=== PATIENT | male | born 1955 | race African-American/Black ===

== ENCOUNTER 2017-03-22 06:51 | Emergency (ER) ==
[2017-03-22 07:09] VITALS: TEMP 98.4; BMI 22.8
[2017-03-22] MEDS ORDERED: CARDIZEM INJ ONE ×2 (07:19→08:27)
[2017-03-22] MEDS ORDERED: CARDIZEM INJ IVP STA ×2 (07:25→07:56)
--- NOTE | 2017-03-22 07:57 | DI ---
EXAM: Chest one view. CLINICAL INDICATION: Chest pain. COMPARISON: 05/15/2015. FINDINGS: A single AP radiograph of the thorax is provided. The pulmonary parenchyma is clear and there is no pleural abnormality. The cardiomediastinal silhou ette and visualized bony structures are unremarkable. IMPRESSION: Negative chest x-ray.
--- NOTE | 2017-03-22 08:00 | ED.PDOC ---
General ED Provider: Dr. NELIDA BURNS Chief Complaint: Chest Pain Stated Complaint: chest pain Time Seen by Physician: 07:00 Mode of Arrival: Walk-In Information Source: Patient Exam Limitations: No limitations Nursing and Triage Documentation Reviewed and Agree: Yes Cardiovascular Complaint Exam - Chest Pain Complaint/Exam Onset: Sudden Duration: 30 min Symptoms Are: Still present Timing: Constant Initial Severity: Mild Current Severity: Mild Location: Reports: Midsternal Pain Radiates: Reports: None Character: Reports: Dull Aggravating: Reports: None Alleviating: Reports: None Associated Signs and Symptoms: Denies: Diaphoresis, Nausea, Vomiting, Fever, Palpitations, Cough, Hemoptysis, Back pain, Abdominal pain, Dizziness, Short of air, Calf pain, Calf swelling Related History: Reports: Similar episode Related Surgical History: Reports: None History of Healthcare-Acquired Pneumonia: Reports: No AMI/ACS Risk Factors: Reports: Smoking (stopped 2 months ago history ofAFIB ) TAD Risk Factors: Reports: None Pulmonary Embolism Risk Factors: Reports: None Prior Care for this Complaint: Yes (afib) Recent Stress Test: No Recent Echo/LV Function: No JVD Present: No Subcutaneous Emphysema Present: No Diminshed Breath Sounds: No Reproducible Chest Wall Pain: No Bilateral Pulses Present: Yes Unequal Pulses Noted: No If Risk Factors for AMI/ACS Consider: EKG, Cardiac Enzymes Review of Systems - Review Of Systems Constitutional: Reports: No symptoms Eyes: Reports: No symptoms Ears, Nose, Mouth, Throat: Reports: No symptoms Respiratory: Reports: No symptoms Cardiac: Reports: Chest pain GI: Reports: No symptoms : Reports: No symptoms Musculoskeletal: Reports: No symptoms Skin: Reports: No symptoms Neurological: Reports: No symptoms Endocrine: Reports: No symptoms Hematologic/Lymphatic: Reports: No symptoms All Other Systems: Reviewed and Negative Past Medical History - Past Medical History Previously Healthy: Yes Endocrine: Reports: None Cardiovascular: Reports: None Respiratory: Reports: None Hematological: Reports: None Gastrointestinal: Reports: None Genitourinary: Reports: None Neuro/Psych: Reports: None Musculoskeletal: Reports: None Cancer: Reports: None - Surgical History General Surgical History: Reports: None - Family History Family History: Reports: None - Social History Smoking Status: Former smoker Hx Substance Use: No Alcohol Screening: Occasionally - Immunizations Tetanus Shot up to Date: Yes Physical Exam - Physical Exam Appearance: Ill-appearing Ill-appearing: Moderate Pain Distress: Moderate Eyes: LANCE, EOMI, Conjunctiva clear ENT: Ears normal, Nose normal, Oropharynx normal Respiratory: Airway patent, Breath sounds clear, Breath sounds equal, Respirations nonlabored Cardiovascular: RRR, Pulses normal, No rub, No murmur GI/: Soft, Nontender, No masses, Bowel sounds normal, No Organomegaly Musculoskeletal: Normal strength, ROM intact, No edema, No calf tenderness Skin: Warm, Dry, Normal color Neurological: Sensation intact, Motor intact, Reflexes intact, Cranial nerves intact, Alert, Oriented Psychiatric: Affect appropriate, Mood appropriate Interpretation - Radiology Interpretation Radiology Interpretation By: Radiologist Radiology Results: Negative Exam Interpreted: CXR - EKG Interpretation Ectopy: PVCs ST Segment: Other (atrial fib with RVR) Re-Evaluation - Re-Evaluation Time of Re-Evaluation: 07:38 Status: Improved Vital Signs Stable: Yes Pain Level: 0 Appearance: NAD Lungs: Clear Skin: Warm and Dry Neuro: Alert and Oriented X3 CV: RRR (BUT STEADILY HR INCREASED HAD TO USE 25 MG OF IV CARDIOZEM HR AT 8: 07 AM 120 AFIB RVR BUT INCREASING AND DROPING TO 120'S) Critical Care Note - Critical Care Note Total Time (mins): 0 Course - Course Hematology/Chemistry: 03/22/17 07:50 03/22/17 07:50 Orders, Labs, Meds: Lab Review 03/22/17 07:50 WBC 10.08 RBC 4.46 L Hgb 13.9 L Hct 40.6 L MCV 91.0 MCH 31.2 H MCHC 34.2 RDW Coeff of Mariama 14.2 Plt Count 230 Immature Gran % (Auto) 0.4 Neut % (Auto) 70.3 Lymph % (Auto) 22.9 [place] % (Auto) 5.8 Eos % (Auto) 0.3 Baso % (Auto) 0.3 Immature Gran # (Auto) 0.0 Neut # 7.1 H Lymph # 2.3 [place] # 0.6 Eos # 0.0 Baso # 0.0 PT 11.6 H INR 1.13 APTT 23.3 L Sodium 140 Potassium 3.8 Chloride 114 H Carbon Dioxide 19 L Anion Gap 10.8 BUN 22 H Creatinine 1.24 H Estimated GFR (MDRD) 72.00 BUN/Creatinine Ratio 17.74 Glucose 110 H Lactic Acid 11.1 Calcium 8.2 Total Bilirubin 0.65 AST 62 H ALT 67 Alkaline Phosphatase 93 Total Creatine Kinase 179 CK-MB (CK-2) 7.9 H* CK-MB (CK-2) % 4.70841 Troponin I 0.7500 H* B-Natriuretic Peptide 685 H Total Protein 5.9 L Albumin 2.9 L Globulin 3.0 Albumin/Globulin Ratio 0.97 TSH 0.680 Free T4 1.19 H Orders Category Date Time Status EKG-(ED ONLY) Stat CARDIO 03/22/17 07:24 Completed TRANSFER TO OUTSIDE FACILITY .TO [facility] 03/22/17 09:10 Active ([place], [place]) WRITE TRANSFER/SBAR NOTE ONCE CARE 03/22/17 09:10 Active DISCHARGE ASSESSMENT ONCE DISCHARGE 03/22/17 09:10 Active WRITE DISCHARGE NOTE ONCE DISCHARGE 03/22/17 09:10 Active B-TYPE NATRIURETIC PEPTIDE Stat LAB 03/22/17 07:50 Completed BLOOD CULTURE Stat LAB 03/22/17 07:50 Results CBC W/ AUTO DIFF Stat LAB 03/22/17 07:50 Completed COMPREHENSIVE METABOLIC PANEL Stat LAB 03/22/17 07:50 Completed CREATINE KINASE Stat LAB 03/22/17 07:50 Completed FREE T4 (FREE THYROXINE) Stat LAB 03/22/17 07:50 Completed LACTIC ACID Stat LAB 03/22/17 07:50 Completed PARTIAL THROMBOPLASTIN TIME Stat LAB 03/22/17 07:50 Completed PT WITH INR Stat LAB 03/22/17 07:50 Completed THYROID STIMULATING HORMONE Stat LAB 03/22/17 07:50 Completed TROPONIN I Stat LAB 03/22/17 07:50 Completed 0.9 % Sodium Chloride [Saline Flush] MEDS 03/22/17 07:24 Discontinued 1 syr IVF PRN PRN 0.9 % Sodium Chloride [Sodium Chloride] 100 ml MEDS 03/22/17 08:30 Discontinued Diltiazem HCl Inj [Cardizem Inj] 125 mg IV 10 mg/hr Diltiazem HCl Inj [Cardizem Inj] MEDS 03/22/17 08:27 Discontinued 150 mg .ROUTE .STK-MED ONE Diltiazem HCl Inj [Cardizem Inj] MEDS 03/22/17 07:25 Discontinued 20 mg IVP ONCE STA Diltiazem HCl Inj [Cardizem Inj] MEDS 03/22/17 07:56 Discontinued 25 mg IVP ONCE STA Diltiazem HCl Inj [Cardizem Inj] MEDS 03/22/17 07:19 Discontinued 50 mg .ROUTE .STK-MED ONE Enoxaparin Sodium [Lovenox] MEDS 03/22/17 09:02 Discontinued 70 mg SUBCUT ONCE STA CHEST, 1V AP ONLY Stat RADS 03/22/17 07:24 Completed Medications Discontinued Medications Generic Name Dose Route Start Last Admin Trade Name Freq PRN Reason Stop Dose Admin Diltiazem HCl 20 mg 03/22/17 07:25 03/22/17 07:17 Cardizem Inj IVP 03/22/17 07:26 20 mg ONCE STA Administration Diltiazem HCl 25 mg 03/22/17 07:56 03/22/17 08:02 Cardizem Inj IVP 03/22/17 07:57 25 mg ONCE STA Administration Enoxaparin Sodium 70 mg 03/22/17 09:02 03/22/17 09:21 Lovenox SUBCUT 03/22/17 09:03 70 mg ONCE STA Administration Diltiazem HCl 125 mg/ Sodium 125 mls @ 10 mls/hr 03/22/17 08:30 03/22/17 08: 34 Chloride IV 10 mg/hr .[id number] ODILON 10 mls/hr Protocol Administration 10 MG/HR Sodium Chloride 1 syr 03/22/17 07:24 03/22/17 07:28 Saline Flush IVF 1 syr PRN PRN Administration To flush IV Vital Signs: Temp Pulse Resp BP Pulse Ox 03/22/17 08:34 143 H 25 H 162/108 H 03/22/17 06:53 98.4 F 67 20 170/137 H 99 DARA Risk Score DARA Risk Score: Risk Score Odds of by 30D 0 0.1 (0.1-0.2) 1 0.3 (0.2-0.3) 2 0.4 (0.3-0.5) 3 0.7 (0.6-0.9) 4 1.2 (1.0-1.5) 5 2.2 (1.9-2.6) 6 3.0 (2.5-3.6) 7 4.8 (3.8-6.1) Departure - Departure Time of Disposition: 10:00 Disposition: TSF SHORT-TRM HOSP Discharge Problem: Chest pain, Paroxysmal atrial fibrillation with rapid ventricular response, Elevated troponin Instructions: Angina (ED), Chest Pain (ED) Condition: Good Pt referred to PMD for follow-up: Yes Additional Instructions: Please call your Family Physician as soon as possible to schedule a follow-up appointment. Allergies/Adverse Reactions: Allergies No Known Allergies Allergy (Verified 03/22/17 07:11) Home Medications: Ambulatory Orders 1 [No Reported Medications] 08/15/15 Disposition Discussed With: Patient
[2017-03-22 08:01] LABS: BASOPHILS % (AUTO) 0.3 % (0.0-3.0); EOSINOPHILS % (AUTO) 0.3 % (0.0-7.0); HEMATOCRIT 40.6 % (42.0-52.0); HEMOGLOBIN 13.9 g/dl (14.0-18.0); IMMATURE GRANULOCYTE % (AUTO) 0.4 % (0.0-5.0); LYMPHOCYTES # (AUTO) 2.3 K/uL (0.60-3.4); LYMPHOCYTES % (AUTO) 22.9 (10.0-50.0); MEAN CORPUSCULAR HEMOGLOBIN 31.2 pg (27.0-31.0); MEAN CORPUSCULAR HGB CONC 34.2 (31.8-35.4); MONOCYTES # (AUTO) 0.6 K/uL (0.4-2.0); MONOCYTES % (AUTO) 5.8 (0-10); NEUTROPHILS # (AUTO) 7.1 K/ul (2.0-6.9); NEUTROPHILS % (AUTO) 70.3; PLATELET COUNT 230 10^3/uL (140-440); RED BLOOD COUNT 4.46 10^6/ul (4.70-6.10); WHITE BLOOD COUNT 10.08 K/ul (4.2-10.2)
[2017-03-22 08:21] LABS: PARTIAL THROMBOPLASTIN TIME 23.3 SEC (23.9-40.0); PROTHROMBIN TIME 11.6 SEC (9.3-11.0)
[2017-03-22] MEDS ORDERED: CARDIZEM INJ 125 MG in SODIUM CHLORIDE 100 ML IV SCH (08:30)
[2017-03-22 08:36] VITALS: BP 162/108
[2017-03-22 08:55] LABS: ALBUMIN 2.9 g/dL (3.4-5.0); ALBUMIN/GLOBULIN RATIO 0.97; ANION GAP 10.8; BILIRUBIN,TOTAL 0.65 mg/dL (0.00-1.20); BUN/CREATININE RATIO 17.74; CALCIUM 8.2 mg/dL (8.2-10.2); CREATININE 1.24 mg/dL (0.60-1.10); POTASSIUM 3.8 mmol/L (3.5-5.1); TOTAL PROTEIN 5.9 g/dL (6.4-8.2)
[2017-03-22 08:57] LABS: TROPONIN I 0.75 ng/ml (0.0000-0.4000)
[2017-03-22 08:58] LABS: CREATINE KINASE MB 7.9 ng/ml (0.0-3.6)
[2017-03-22] MEDS ORDERED: LOVENOX SUBCUT STA (09:02)
== END 2017-03-22 09:30 | disposition short-term general hospital (02) ==
LOC: ED 06:51
DX: R07.9 Chest pain, unspecified (principal); I48.0 Paroxysmal atrial fibrillation; R79.89 Other specified abnormal findings of blood chemistry
CPT/HCPCS: 36415; 80053; 82550; 82553; 83605; 83880; 84439; 84443; 84484; 85025; 85610; 85730; 87040; 93005; 93010; 96365; 96372; 96375; 99285

== ENCOUNTER 2017-03-22 09:38 | Outpatient (CLI) ==
[2017-03-22 07:09] VITALS: BMI 22.8
== END 2017-03-22 09:39 ==
LOC: AMBL 09:38
PROVIDERS: ATTEND Internal Medicine
DX: R07.9 Chest pain, unspecified (principal); R06.02 Shortness of breath

== ENCOUNTER 2018-06-08 14:39 | Emergency (ER) ==
[2018-06-08 14:47] VITALS: BP 141/94; TEMP 97.2; BMI 21.4
--- NOTE | 2018-06-08 15:41 | ED.PDOC ---
General ED Provider: Dr. YIN HOLLINGSWORTH Chief Complaint: Extremity Pain/Injury Stated Complaint: Bruising Lt lower extremity. State in on chronic coumadin therapy and recently struck his lt posterior thigh against a trailer hitch and now has developed and tender nodular area and bruising of the lateral thigh, knee and down outer leg. Concerned over blood clot. States has been on coumadin for last year and has never had a PT/INR drawn and does not routinely monitor this lab test Time Seen by Physician: 14:45 Mode of Arrival: Walk-In Information Source: Patient Exam Limitations: No limitations Referred to ED by: Other (self) Nursing and Triage Documentation Reviewed and Agree: Yes Does patient meet sepsis criteria?: No If yes, has appropriate treatment been initiated?: Yes System Inflammatory Response Syndrome: Not Applicable Sepsis Protocol: For patient's 13 years and over: Temp is 96.8 and below OR 101 and greater Pulse >90 BPM Resp >20/minute Acutely Altered Mental Status Are patient's symptoms suggestive of a new infection, such as: -Pneumonia -Skin, Soft Tissue -Endocarditis -UTI -Bone, Joint Infection -Implantable Device -Acute Abdominal Infection -Wound Infection -Meningitis -Blood Stream Catheter Infection -Unknown Review of Systems - Review Of Systems Constitutional: Reports: No symptoms Eyes: Reports: No symptoms Ears, Nose, Mouth, Throat: Reports: No symptoms Respiratory: Reports: No symptoms Cardiac: Reports: No symptoms GI: Reports: No symptoms : Reports: No symptoms Musculoskeletal: Reports: No symptoms, Muscle stiffness, Other (lt thigh discomfort) Skin: Reports: No symptoms Neurological: Reports: No symptoms Endocrine: Reports: No symptoms Hematologic/Lymphatic: Reports: No symptoms All Other Systems: Reviewed and Negative Past Medical History - Past Medical History Previously Healthy: Yes Endocrine: Reports: None Cardiovascular: Reports: None Respiratory: Reports: None Hematological: Reports: None Gastrointestinal: Reports: None Genitourinary: Reports: None Neuro/Psych: Reports: None Musculoskeletal: Reports: None Cancer: Reports: None - Surgical History General Surgical History: Reports: None - Family History Family History: Reports: None - Social History Smoking Status: Current every day smoker, Light tobacco smoker Hx Substance Use: No Alcohol Screening: Occasionally Physical Exam - Physical Exam Appearance: Well-appearing, No pain distress, Well-nourished, Thin Ill-appearing: None Pain Distress: None Eyes: LANCE, EOMI, Conjunctiva clear ENT: Ears normal, Nose normal, Oropharynx normal Respiratory: Airway patent, Breath sounds clear, Breath sounds equal, Respirations nonlabored Cardiovascular: RRR, Pulses normal, No rub, No murmur GI/: Soft, Nontender, No masses, Bowel sounds normal, No Organomegaly Musculoskeletal: Normal strength, ROM intact, No edema, No calf tenderness, Limited ROM (lt knee-ecchymoses over lat thigh to knee; minimal tenderness- normal rom), Edema (Lat posterior LT thigh superfical nodular tender area mobile -prudencio size) Skin: Warm, Dry, Normal color Neurological: Sensation intact, Motor intact, Reflexes intact, Cranial nerves intact, Alert, Oriented Psychiatric: Affect appropriate, Mood appropriate Critical Care Note - Critical Care Note Total Time (mins): 30 Course - Course Hematology/Chemistry: 06/08/18 15:54 06/08/18 15:54 Orders, Labs, Meds: Lab Review 06/08/18 06/08/18 06/08/18 15:54 15:54 15:54 WBC 7.99 RBC 3.57 L Hgb 11.3 L Hct 33.5 L MCV 93.8 MCH 31.7 H MCHC 33.7 RDW Coeff of Mariama 15.0 H Plt Count 249 Immature Gran % (Auto) 0.8 Neut % (Auto) 65.3 Lymph % (Auto) 23.9 [place] % (Auto) 7.4 Eos % (Auto) 2.5 Baso % (Auto) 0.1 Immature Gran # (Auto) 0.1 Neut # (Auto) 5.2 Lymph # (Auto) 1.9 [place] # (Auto) 0.6 Eos # (Auto) 0.2 Baso # (Auto) 0.0 PT 53.8 H INR 5.66 H* APTT 46.9 H Sodium 141 Potassium 3.7 Chloride 111 H Carbon Dioxide 24 Anion Gap 9.7 BUN 23 H Creatinine 1.84 H Estimated GFR (MDRD) 46.00 BUN/Creatinine Ratio 12.50 Glucose 89 Calcium 8.2 Total Bilirubin 0.5 AST 26 ALT 15 Alkaline Phosphatase 103 Total Protein 6.6 Albumin 3.1 L Globulin 3.5 Albumin/Globulin Ratio 0.89 Orders Category Date Time Status CBC W/ AUTO DIFF Stat LAB 06/08/18 15:54 Completed CMP [COMPREHENSIVE METABOLIC PANEL] Stat LAB 06/08/18 15:54 Completed PT WITH INR Stat LAB 06/08/18 15:54 Completed PTT [PARTIAL THROMBOPLASTIN TIME] Stat LAB 06/08/18 15:54 Completed ULTRASOUND VENOUS SCAN LT. LEG [U/S VENOUS SCAN LT. LEG RADS 06/08/18 15:39 Completed ] Stat Vital Signs: Temp Pulse Resp BP Pulse Ox 06/08/18 14:40 97.2 F L 83 20 141/94 H 99 Departure - Departure Time of Disposition: 17:20 Disposition: HOME SELF-CARE Discharge Problem: Contusion of thigh, left, Prolonged INR Instructions: Warfarin (By mouth), Elevated INR (ED), Hip Contusion (ED) Condition: Good Pt referred to PMD for follow-up: Yes (Options at [facility] cards given) IPMP verified?: No Additional Instructions: Hold coumadin until follow up appointment this week in next 48 hours. Please follow up either with Dr. Wheat or Dr. Caldera this week. Cards are given Allergies/Adverse Reactions: Allergies No Known Allergies Allergy (Verified 06/08/18 14:46) Home Medications: Ambulatory Orders Amiodarone HCl [Cordarone] 200 mg PO DAILY 06/08/18 Diltiazem HCl [Diltiazem 24Hr Cd] 300 mg PO DAILY 06/08/18 Lisinopril 10 mg PO DAILY 06/08/18 Warfarin Sodium [Coumadin] 5 mg PO DAILY 06/08/18 Disposition Discussed With: Patient Musculoskeletal Complaint Exam - Lower Extremity Complaint/Exam Location of Pain: Reports: Left, Thigh Mechanism of Injury: Reports: Trauma Onset/Duration: 3 days Symptoms Are: Still present Onset of Pain: Reports: Immediate Initial Severity: Moderate Current Severity: Moderate Location: Reports: Discrete Character: Reports: Aching, Throbbing Alleviating: Reports: Rest Aggravating: Reports: Movement Able to Bear Weight: Yes Associated Signs and Symptoms: Reports: Swelling Related History: Denies: Similar episode DVT Risk Factors: Reports: None, Recent trauma (struck lt thigh against boat hitch) Septic Arthritis Risk Factors: Reports: None Related Surgical History: Reports: None Lower Extremity Findings: Present: Swelling (Localize posterior lateral mid lt thigh-nodular prudencio size,not warm or fluctuant), Ecchymosis (Extending from lateral thigh to mid leg), Tenderness NV Bundle Intact Distal to Injury: Yes Concepción's Sign Present: No Differential Diagnoses: Contusion, DVT
--- NOTE | 2018-06-08 16:37 | US ---
EXAM: ULTRASOUND LOWER EXTREMITY VENOUS DOPPLER EXAM HISTORY: Trauma, bruising. FINDINGS: Left lower extremity venous Doppler exam. Real time escalona-scale, Doppler spectral analysis and color-flow Doppler imaging performed. The veins targeted for evaluation include the common femor al, greater saphenous, profundus, femoral, popliteal, peroneal, anterior tibial and posterior tibial. The evaluated veins demonstrated normal spontaneous flow and compression without evidence of throm bosis. Images revealed no obvious peripheral hematoma. IMPRESSION: No venous thrombosis identified within the areas evaluated.
== END 2018-06-08 17:42 | disposition home or self-care (01) ==
LOC: ED 14:39
DX: S70.12XA Contusion of left thigh, initial encounter (principal); R79.1 Abnormal coagulation profile; W22.8XXA Striking against or struck by other objects, initial encounter; Z79.01 Long term (current) use of anticoagulants; F17.210 Nicotine dependence, cigarettes, uncomplicated
CPT/HCPCS: 36415; 80053; 85025; 85610; 85730; 99283

== ENCOUNTER 2018-06-22 15:46 | Outpatient (CLI) | END 2018-06-22 15:47 | disposition home or self-care (01) | LOC: RHC-LAB 15:46 | PROVIDERS: ATTEND Emergency Medicine | DX: I48.2 Chronic atrial fibrillation (principal); D68.32 Hemorrhagic disorder due to extrinsic circulating anticoagulants; Z79.01 Long term (current) use of anticoagulants | CPT/HCPCS: 36415; 85025; 85610 ==

== ENCOUNTER 2018-07-20 15:55 | Outpatient (CLI) | END 2018-07-20 15:56 | disposition home or self-care (01) | LOC: RHC-LAB 15:55 | PROVIDERS: ATTEND Emergency Medicine | DX: I48.2 Chronic atrial fibrillation (principal); D68.32 Hemorrhagic disorder due to extrinsic circulating anticoagulants | CPT/HCPCS: 36415; 85610 ==

== ENCOUNTER 2019-01-24 14:40 | Outpatient (CLI) | END 2019-01-24 14:41 | disposition home or self-care (01) | LOC: LAB 14:40 | PROVIDERS: ATTEND Nurse Practitioner Family | DX: R00.0 Tachycardia, unspecified (principal); R00.2 Palpitations; R06.02 Shortness of breath; E87.6 Hypokalemia; R79.89 Other specified abnormal findings of blood chemistry; Z79.01 Long term (current) use of anticoagulants; Z12.5 Encounter for screening for malignant neoplasm of prostate | CPT/HCPCS: 36415; 80053; 84443; 85610; 93005; 93010 ==

== ENCOUNTER 2019-02-21 12:54 | Outpatient (CLI) ==
[2019-02-21] MEDS ORDERED: ALBUTEROL 0.042% NEB NEB STA (13:31)
[2019-02-21] MEDS ORDERED: ALBUTEROL 0.083% NEB NEB STA (13:33)
== END 2019-02-21 12:55 | disposition home or self-care (01) ==
LOC: CAR 12:54
PROVIDERS: ATTEND Nurse Practitioner Family
DX: R06.02 Shortness of breath (principal); Z72.0 Tobacco use

== ENCOUNTER 2019-03-10 15:12 | Outpatient (CLI) | END 2019-03-10 15:13 | disposition home or self-care (01) | LOC: RHC-LAB 15:12 | PROVIDERS: ATTEND Nurse Practitioner Family | DX: Z51.81 Encounter for therapeutic drug level monitoring (principal); Z79.01 Long term (current) use of anticoagulants | CPT/HCPCS: 36415 ==

== ENCOUNTER 2019-03-14 13:33 | Outpatient (CLI) | END 2019-03-14 13:34 | disposition home or self-care (01) | LOC: RHC-LAB 13:33 | PROVIDERS: ATTEND Nurse Practitioner Family | DX: Z51.81 Encounter for therapeutic drug level monitoring (principal); Z79.01 Long term (current) use of anticoagulants | CPT/HCPCS: 36415; 85610 ==

== ENCOUNTER 2019-04-27 13:42 | Outpatient (CLI) | END 2019-04-27 13:43 | disposition home or self-care (01) | LOC: RHC-LAB 13:42 | PROVIDERS: ATTEND Nurse Practitioner Family | DX: Z51.81 Encounter for therapeutic drug level monitoring (principal); Z79.01 Long term (current) use of anticoagulants; I50.9 Heart failure, unspecified; R53.83 Other fatigue | CPT/HCPCS: 36415; 80053; 82306; 82607; 83880; 85025; 85610 ==

== ENCOUNTER 2020-07-26 23:05 | Observation (INO) ==
[2020-07-26] MEDS ORDERED: SOLU-MEDROL 125 MG IVP STA (23:35)
--- NOTE | 2020-07-26 23:41 | ED.PDOC ---
General ED Provider: Dr. NICK WHELAN Chief Complaint: Shortness of Air Stated Complaint: Comes to the ER with shortness of breath for the past few hours, Denies any chest pain. Has gained about 10 pound in one month. Time Seen by Physician: 23:30 Mode of Arrival: Walk-In Information Source: Patient Primary Care Provider: DEREK MARTE MD Nursing and Triage Documentation Reviewed and Agree: Yes Does patient meet sepsis criteria?: Yes If yes, has appropriate treatment been initiated?: No (has a history of CHF) System Inflammatory Response Syndrome: Not Applicable Sepsis Protocol: For patient's 13 years and over: Temp is 96.8 and below OR 101 and greater Pulse >90 BPM Resp >20/minute Acutely Altered Mental Status Are patient's symptoms suggestive of a new infection, such as: -Pneumonia -Skin, Soft Tissue -Endocarditis -UTI -Bone, Joint Infection -Implantable Device -Acute Abdominal Infection -Wound Infection -Meningitis -Blood Stream Catheter Infection -Unknown Review of Systems Review Of Systems Constitutional: Reports Other (wt gain 10 lbs ) Eyes: Reports No symptoms Ears, Nose, Mouth, Throat: Reports No symptoms Respiratory: Reports Cough and Short of air Cardiac: Reports Edema, Irregular heart rate and Other GI: Reports No symptoms : Reports No symptoms Musculoskeletal: Reports No symptoms Skin: Reports No symptoms Neurological: Reports Anxiety Endocrine: Reports No symptoms All Other Systems: Reviewed and Negative [facility] Medical History (Updated 07/27/20 @ 01:26 by NICK WHELAN MD) Cardiac arrhythmia Shortness of breath Family History Mother Cerebrovascular accident Hypertension FATHER Cardiac disease Grandfather/Grandmother Cancer Other Seasonal allergies Physical Exam Physical Exam Appearance: Reports Ill-appearing Ill-appearing: Mild Pain Distress: None Eyes: Reports LACNE and EOMI ENT: Reports Nose normal Neck: Supple Respiratory: Reports Airway patent, Breath sounds equal and Crackles (on the bases) Cardiovascular: Reports RRR, Pulses normal and Murmur GI/: Reports Soft and Nontender Musculoskeletal: Reports Normal strength, ROM intact and Edema (of ankle worse o n the left ) Skin: Reports Warm and Dry Neurological: Reports Sensation intact, Alert and Oriented Psychiatric: Reports Anxious Interpretation Radiology Interpretation Radiology Interpretation By: Radiologist Radiology Results: Positive (Cardiomegaly with pulmonary vascular congestion and trace bilateral pleural effusions) Exam Interpreted: Portable CXR EKG Interpretation Rate: Tachy Rhythm: Other (Atrial fibrillation) Ectopy: None [employer]: Left ST Segment: Normal Interpretation: in complete RBBB Re-Evaluation Re-Evaluation Time of Re-Evaluation: : Status: Improved Vital Signs Stable: Yes Critical Care Note Critical Care Note Total Time (mins): 35 Course Course Hematology/Chemistry: 07/26/20 23:50 07/26/20 23:50 Orders, Labs, Meds: Lab Review 07/26/20 07/26/20 07/26/20 23:50 23:50 23:50 WBC 8.58 RBC 4.46 L Hgb 13.2 L Hct 41.7 L MCV 93.5 MCH 29.6 MCHC 31.7 L RDW Coeff of Mariama 16.8 H Plt Count 280 Immature Gran % (Auto) 0.2 Neut % (Auto) 72.7 Lymph % (Auto) 18.6 [place] % (Auto) 7.8 Eos % (Auto) 0.5 Baso % (Auto) 0.2 Neut # (Auto) 6.2 Lymph # (Auto) 1.6 [place] # (Auto) 0.7 Eos # (Auto) 0.0 Baso # (Auto) 0.0 Immature Gran # (Auto) 0.0 Sodium 139.7 Potassium 4.05 Chloride 107.4 H Carbon Dioxide 28.0 Anion Gap 8.35 BUN 28.9 H Creatinine 1.55 H Estimated GFR (MDRD) 55.00 BUN/Creatinine Ratio 18.64 Glucose 94.8 Calcium 8.95 Total Bilirubin 0.52 AST 44.2 ALT 36.7 Alkaline Phosphatase 104.3 Total Creatine Kinase 81.1 Troponin I 0.091 NT-Pro-B Natriuret Pep Total Protein 6.81 Albumin 3.50 Globulin 3.31 Albumin/Globulin Ratio 1.05 Procalcitonin D-Dimer 422.35 07/26/20 07/26/20 23:50 23:50 WBC RBC Hgb Hct MCV MCH MCHC RDW Coeff of Mariama Plt Count Immature Gran % (Auto) Neut % (Auto) Lymph % (Auto) [place] % (Auto) Eos % (Auto) Baso % (Auto) Neut # (Auto) Lymph # (Auto) [place] # (Auto) Eos # (Auto) Baso # (Auto) Immature Gran # (Auto) Sodium Potassium Chloride Carbon Dioxide Anion Gap BUN Creatinine Estimated GFR (MDRD) BUN/Creatinine Ratio Glucose Calcium Total Bilirubin AST ALT Alkaline Phosphatase Total Creatine Kinase Troponin I NT-Pro-B Natriuret Pep 5340.000 H Total Protein Albumin Globulin Albumin/Globulin Ratio Procalcitonin < 0.05 D-Dimer Orders Category Date Time Status EKG-(ED ONLY) Stat CARDIO 07/26/20 23:28 Completed ED IV/MEDIPORT/POWERPORT .ONCE EMERGENCY 07/26/20 23:34 Active BLOOD CULTURE (ED ONLY) Stat LAB 07/26/20 Ordered CBC W/ AUTO DIFF Stat LAB 07/26/20 23:50 Completed COMPREHENSIVE METABOLIC PANEL Stat LAB 07/26/20 23:50 Completed COVID19, PCR IDPH Stat LAB 07/26/20 Ordered CREATINE KINASE Stat LAB 07/26/20 23:50 Completed D-DIMER Stat LAB 07/26/20 23:50 Completed LACTIC ACID Stat LAB 07/26/20 23:36 Ordered NT-PROBNP Stat LAB 07/26/20 23:50 Completed PROCALCITONIN Stat LAB 07/26/20 23:50 Completed TROPONIN I Stat LAB 07/26/20 23:50 Completed 0.9 % Sodium Chloride [Saline Flush] MEDS 07/26/20 23:34 Active 1 syr IVF PRN PRN Furosemide [Lasix] MEDS 07/27/20 01:01 Discontinued 40 mg IVP ONCE STA Methylprednisolone Sod Succ/Pf [Solu-Medrol 125 mg] MEDS 07/26/20 23:35 Discontinued 125 mg IVP ONCE STA CHEST, 1V AP ONLY Stat RADS 07/26/20 23:28 Completed Medications Generic Name Dose Route Start Last Admin Trade Name Freq PRN Reason Stop Dose Admin Sodium Chloride 1 syr 07/26/20 23:34 07/27/20 00:40 Saline Flush IVF 1 syr PRN PRN Administration To flush IV Discontinued Medications Generic Name Dose Route Start Last Admin Trade Name Freq PRN Reason Stop Dose Admin Furosemide 40 mg 07/27/20 01:01 Lasix IVP 07/27/20 01:02 ONCE STA Methylprednisolone Sodium Succinate 125 mg 07/26/20 23:35 07/27/20 00:39 Solu-Medrol 125 Mg IVP 07/26/20 23:36 125 mg ONCE STA Administration Vital Signs: Temp Pulse Resp BP Pulse Ox 07/26/20 23:07 96.8 F L 91 H 24 183/141 H 98 Discharge Plan Discharge Patient Disposition: PLACED OBSERVATION Discharge Problem: CHF exacerbation Qualifiers: Heart failure type: unspecified Qualified Code(s): I50.9 - Heart failure, unspecified ED Provider: NICK WHELAN Condition: Fair
[2020-07-26 23:54] LABS: BASOPHILS % (AUTO) 0.2 % (0.0-3.0); EOSINOPHILS % (AUTO) 0.5 % (0.0-7.0); HEMATOCRIT 41.7 % (42.0-52.0); HEMOGLOBIN 13.2 g/dl (14.0-18.0); IMMATURE GRANULOCYTE % (AUTO) 0.2 % (0.0-5.0); LYMPHOCYTES # (AUTO) 1.6 K/uL (0.60-3.4); LYMPHOCYTES % (AUTO) 18.6 (10.0-50.0); MEAN CORPUSCULAR HEMOGLOBIN 29.6 pg (27.0-31.0); MEAN CORPUSCULAR HGB CONC 31.7 (31.8-35.4); MEAN CORPUSCULAR VOLUME 93.5 fl (80.0-94.0); MONOCYTES # (AUTO) 0.7 K/uL (0.4-2.0); MONOCYTES % (AUTO) 7.8 (0-10); NEUTROPHILS # (AUTO) 6.2 K/ul (2.0-6.9); NEUTROPHILS % (AUTO) 72.7 % (42.2-75.2); PLATELET COUNT 280 10^3/uL (140-440); RDW COEFFICIENT OF VARIATION 16.8 % (11.6-14.8); RED BLOOD COUNT 4.46 10^6/ul (4.70-6.10); WHITE BLOOD COUNT 8.58 K/ul (4.2-10.2)
[2020-07-27 00:10] LABS: ALANINE AMINOTRANSFERASE 36.7 U/L (0-50); ALBUMIN 3.5 g/dL (3.5-5.0); ALKALINE PHOSPHATASE 104.3 U/L (56-119); ASPARTATE AMINO TRANSFERASE 44.2 U/L (17-59); BILIRUBIN,TOTAL 0.52 mg/dL (0.2-1.3); BLOOD UREA NITROGEN 28.9 mg/dL (9-20); CALCIUM 8.95 mg/dL (8.4-10.2); CHLORIDE 107.4 mmol/L (98-107); CREATINE KINASE 81.1 U/L (55-170); CREATININE 1.55 mg/dL (0.60-1.10); GLUCOSE 94.8 mg/dL (74-106); POTASSIUM 4.05 mmol/L (3.5-5.1); SODIUM 139.7 mmol/L (134.5-145); TOTAL PROTEIN 6.81 g/dL (6.3-8.2)
[2020-07-27 00:22] LABS: TROPONIN I 0.091 ng/ml (0.0000-0.120)
--- NOTE | 2020-07-27 00:24 | DI ---
EXAM: Portable chest HISTORY:Shortness of breath COMPARISON: Single-view chest 07/10/2020 FINDINGS: There is stable cardiomegaly. Atherosclerotic changes are seen involving the aortic arch. The lungs are hyperinflated. There is pulmonary vascular congestion with small bilateral pleural ef fusions. IMPRESSION: Cardiomegaly with pulmonary vascular congestion and trace bilateral pleural effusions
[2020-07-27] MEDS ORDERED: LASIX IVP STA (01:01)
[2020-07-27] MEDS ORDERED: ZOFRAN 4 MG/2 ML IVP PRN (01:20)
[2020-07-27 02:15] LABS: AMPHETAMINE SCREEN,URINE NEGATIVE (NEGATIVE); BARBITURATE SCREEN,URINE NEGATIVE (NEGATIVE); BENZODIAZEPINES SCREEN,URINE POSITIVE (NEGATIVE); CANNABINOID SCREEN,URINE NEGATIVE (NEGATIVE); COCAIN SCREEN,URINE POSITIVE (NEGATIVE); METHADONE URINE SCREEN NEGATIVE (NEGATIVE); METHAMPHETAMINES SCREEN,URINE NEGATIVE (NEGATIVE); OPIATE SCREEN,URINE NEGATIVE (NEGATIVE); OXYCODONE URINE SCREEN NEGATIVE (NEGATIVE); PHENCYCLIDINE SCREEN,URINE NEGATIVE (NEGATIVE); PROPOXYPHENE URINE SCREEN NEGATIVE (NEGATIVE); TRICYCLIC ANTIDEPRESSANTS URIN NEGATIVE (NEGATIVE)
[2020-07-27 02:16] VITALS: TEMP 98.4; BMI 21.8
[2020-07-27 05:28] LABS: HEMOGLOBIN 12.4 g/dl (14.0-18.0); IMMATURE GRANULOCYTE % (AUTO) 0.4 % (0.0-5.0); LYMPHOCYTES # (AUTO) 0.6 K/uL (0.60-3.4); LYMPHOCYTES % (AUTO) 8.5 (10.0-50.0); MEAN CORPUSCULAR HEMOGLOBIN 29.8 pg (27.0-31.0); MEAN CORPUSCULAR HGB CONC 32.6 (31.8-35.4); MEAN CORPUSCULAR VOLUME 91.3 fl (80.0-94.0); MONOCYTES # (AUTO) 0.1 K/uL (0.4-2.0); MONOCYTES % (AUTO) 0.8 (0-10); NEUTROPHILS # (AUTO) 6.5 K/ul (2.0-6.9); NEUTROPHILS % (AUTO) 90.3 % (42.2-75.2); PLATELET COUNT 257 10^3/uL (140-440); RDW COEFFICIENT OF VARIATION 16.6 % (11.6-14.8); RED BLOOD COUNT 4.16 10^6/ul (4.70-6.10); WHITE BLOOD COUNT 7.17 K/ul (4.2-10.2)
[2020-07-27 05:40] LABS: BLOOD UREA NITROGEN 27.4 mg/dL (9-20); CALCIUM 8.79 mg/dL (8.4-10.2); CARBON DIOXIDE 29.7 mmol/L (22-30.0); CHLORIDE 105.5 mmol/L (98-107); CREATININE 1.4 mg/dL (0.60-1.10); POTASSIUM 4.17 mmol/L (3.5-5.1)
--- NOTE | 2020-07-27 06:10 | PCM ---
Chief Complaint Chief Complaint: SOA, weight gain History of Present Illness History of Present Illness: 65 yo AAM with known history of CHF, former smoker, hypoxia, cocaine use presented to [facility] ED on 07/26/20 at 23:[address] Duran. Relatively new patient of [facility] with #2 visits with me regarding his CHF and cocaine usage. Patient walked into the ED vitals temp 96.8, pulse 91, rr 24, bp 183/141, pulse ox 98. Weight noted 07/27 to be 147, 07/26 was 149, 07/16 was 150, 142 on 07/11, 146 on 07/10 and 139 on 05/07/20. Patient reported >10 lb weight gain, edema, anxiety, irregular heart rate to ED provider. Upon physical exam he was noted to be illappearing, mild crackles bilateral bases, RRR, normal pulses, murmur appreciated, edema bilateral L>R ankles. CXR ordered and patietn found to have pulmonary vascular congestion and trace bilateral pleural eff usions. EKG completed RBBB and atrial fibrillation. Labs evaluated and patient found to have CBC: WBC 8.59, hgb 13.2, plt 280. MCV normal at 93.5, rdw elevated 16.8.CMP with Sodium 139.7, K+ 4.05, BUN 28.9, Cr 1.55, glucose 94.8. Ddimer 422.35, Troponin I 0.091, Creatinine elevated as noted with baseline over last 30-60 days approximately 1.4-1.52 and GFR 38-62. The patient NT-PRO-BNP was found to be 5340, procalcitonin of <0.05. CK of 81.1. He was given lasix IVP 40mg, solumedrol 125 IV once in the ED. I was contacted at 01:19 and case was discussed with Dr. Duran directly. I was concerned with patietn cocaine use, I noted this to the ED provider who ordered Tox screen at my request. Patient was BZO and Cocaine positive again, similar results to that found on 07/10/20. Patient and I had a very servando discussion in last OV about cocaine use and how this affects the heart. He agreed to stop cocaine at last OV, but with continued + it appears he is continuing to use this substance. The patient has known history of CHF, afib, anticoag on eliquis 5 BID, amiodarone 200 daily, dig 125mcg daily, allergy to lisinopril, we are struggling with insurance to get entresto covered, and we are currently in process of getting him to meet with cardiology. He was admitted to in normal 05/07-05/12 with CHF and met with DR. Burk while in patient at that facility. Echocardiogram completed LV systolic function moderately decreased with EF36-40%., LV cavity mildly dilated,, severe mitral regurgitation, Left atria severely dilated, RV mildly dilated and has preserved function. Rhythm Afib with RVR. Vitals overnight BP 183/141 at 23:07 07/26, was 149/107 07/27/20, 153/99 0325, 144/108 0600, 153/99 06:09. HR have been 91-117. Afebrile throughout stay. O2 93-98%. He was admitted to obs status in room SCU-1. I discussed case with am nurses, reviewed early am documentation, and discussed care with team directly starting at 06:00. I talked with patient and found him to be in isolation as PUI. Patient has no URI, no fever, no MUJICA, no body aches, no chills, no vision changes, no loss of taste/smell, No new URI symptoms, no new allergy symptoms, mild cough from vascular congestion due to fluid overload, mild wheezing and SOA explained by CHF exacerbation, No CP, reported fatigue, no abd pain, no N/V/D, no constipation, no changes in urination/stooling, no new MSK pain, no recent injuries except as listed above. Fall history reviewed and negative. The patient is supposed to leave at 7 am tomorrow to go to [place] to have a mandatory swab for COVID-19 prior to his oral surgery/extraction on 08/01/20. He was seen in ED 07/10/20, then by me on 07/11 and 07/16. I discussed with him at last OV that cocaine can be detectable in urine up to 4 days. He had admitted to using GF valium at last OV. We discussed again today 30-56 hour half life. It can take up to 10 days for this to leave your system, metabolites even longer. The patient this am was adamant that he did not use this agent, nor did he use cocaine. I discussed benzo Valium can stay positive in urine for several weeks but based on his history he has not used anything since 2 days before our last visit. He has been using water pill, got tired of it and decided to not take any yesterday as he wanted to sleep. He states "on my mothers grave" that he did not use cocaine or benzos. He asked about pain pills? I noted they did not show up but again noted it was not allowable to be using medications that are not rx to him in the first place. "oh, oh, oh." He did not qualify for o2 with the 3step pulse oximetry and he is wanting oxygen. I noted he can pay for this himself but insurance will not cover this, just like the entresto. I will resume Losartan 50mg, will add metoprolol succinate 25mg daily today. He is adamant that he wants to leave as he has to leave for [place] in the am. He is not in any worse state than when I saw him in clinic on 07/16. He is talking in full sentences. AAOx3. I talked with nursing and he is not a PUI, he is undergoing surveillance for surgery. The patient has no s/sx of COVID-19, has a mild exacerbation of CHF that appears to be chronically poor. He is leaving tomorrow am, does not want to stay. Based on his health currently, I do not have any acute reason to keep him in the hospital. I will remove him from PUI status, I will add losartan 50mg as noted above, metoprolol succinate 25mg daily and see him in clinic in 1 week. He has 0 more warnings at this time about his drug use. I am concerned for chronic cocaine and non compliance/abuse of benzo as well. He does not appear to be in acute decompensated CHF, rather he appears to be in chronic CHF that has thus far been incompletely managed. Again as noted above, we have tried to get him his entresto, but not covered. In lieu of this, I will resume his losartan, I will add BB. Again, not acutely decompensated. Weight is about what it was in clinic, lungs similar. Patient missed a dose of meds, he wanted o2, he feels better on o2 but does not qualify. He does not want to pay out of pocket. REVIEW OF SYMPTOMS: (Positives bolded) General: weight gain, fever, chills, night sweats, fatigue, appetite loss HEENT: blurry vision, eye pain, eye discharge, dry eyes, decreased vision, sore throat tinnitus, bloody nose, hearin gloss, sinus pain/pressure, ear pain/pressure. Respiratory: shortness of breath, cough, hemoptysis, wheezing, pleurisy, Cardiovascular: chest pain, PND, palpitation, edema, orthopnea, syncope, swelling of extremities Gastro: Nausea, vomiting, diarrhea, hematemesis, abdominal pain, constipation Genito: hematuria, dysuria, glycosuria, hesitancy, frequency, incontinence Musckelo: Arthralgia, myalgia, muscle weakness, joint swelling, NSAID use Skin: rash, pruritis, sores, nail changes, skin thickening, change in wart/mole, itching, rash, new lesions, pruritus, nail changes, Chronic callus feet. Neuro: Migraine, numbness, ataxia, tremor, vertigo, weakness, memory loss, Irritability, dizziness Endocrine: excessive thirst, polyuria, cold intolerance, heat intolerance, goiter Psychiatric: depression, anxiety, anti-depressants, alcohol abuse, drug abuse, insomnia, change in sleep pattern and mood changes Heme/lymph: easy bruising, bleeding gums, blood clots, swollen glands, lymphedema, Allergic/immune: allergic rhinitis, hay fever, asthma, hives Vital Signs - 24 hr 07/26/20 23:07 07/27/20 01:53 07/27/20 02:30 Temperature 96.8 F L 98.4 F Pulse Rate 91 H 110 H 117 H Respiratory Rate 24 28 H 28 H Blood Pressure 183/141 H 149/107 H O2 Sat by Pulse Oximetry 98 98 93 L 07/27/20 03:25 07/27/20 06:00 07/27/20 06:09 Temperature 98.1 F 98.4 F Pulse Rate 110 H 110 H 110 H Respiratory Rate 24 20 24 Blood Pressure 153/99 H 144/108 H 153/99 H O2 Sat by Pulse Oximetry 96 93 L 96 Constitutional: Appearance-No acute distress, Consistent with stated age. Talks in complete sentences. Orientation- Oriented x 3, alert Build and Nutrition- normal.] General- Patient is pleasant and cooperative with the interview and exam. Denied drug use despite repeat UDS+ BZO and Cocaine. Integumentary: General-No rashes, ulcers or lesions. Palpation- Normal skin moisture/turgor. Skin is warm to touch, appropriate. Capillary refill is normal bilateral Upper and lower extremity. Mild edema bilateral lower extremities about the ankles. Head/Neck: Head- normocephalic and atraumatic. Neck- without visible/palpable lumps or pulsations. Palpation- No bony tenderness about head/neck along frontal, occipital, temporal, parietal, mastoid, jawline, zygoma, orbit or any other location. NO temporal artery tenderness. No TMJ tenderness. Neck Supple. Thyroid-No thyromegaly, no nodules Eye: Bilaterally PERRLA, EOMI. No discharge. Upper and lower eyelids are normal. Sclera/conjunctiva normal without discharge. Cornea is normal and clear. Lens is normal. Eyeball appears normal. No ciliary flushing, no conjunctival injection. ENMT: Pinna- normal without tenderness or erythema. External auditory canal Left- normal without erythema or discharge, no excessive cerumen. External auditory canal Right-normal without erythema or discharge, no excessive cerumen. TM left- Retana/pearly, normal light reflex and anatomy TM Right- Retana/pearly, normal light reflex and anatomy Hearing Assessment-normal to conversational speech. Nose and sinus- No sinus tenderness along frontal/maxillary region. External appearance normal and midline. Nares- bilateral quiet airflow, no discharge. Nasal mucosa- No bleeding noted and no ulcerations observed. Coats, moist. Turbinates non boggy. Lips- normal color, moist without cracks/lesions Oral Cavity/Palate- hard/soft palate intact without lesions, oral mucosa pink and moist. Dentition assessed [and poor] and discussed appropriate oral care. Tongue normal midline. Oropharynx- no pharyngeal erythema, Uvula midline. No post nasal drip. No exudate. Salivary glands- Non tender to palpation CHEST/LUNG: Inspection- symmetric chest wall no pectus deformity. Normal effort, no distress, no use of accessory muscles. Palpation- nontender sternum, ribline. No abnormal pulsations. Auscultation- Breath sounds normal throughout all lung yu but reduced. Normal tracheal sounds, Normal bronchial sounds overlying sternum, Bronchovessicular sounds normal between scapulae posteriorly, Normal vessicular breath sounds heard throughout periphery. Lungs are clear today. Adventitious sounds- scattered wheezes, lower lung crackles. rhonchi. CARDIOVASCULAR: Carotid artery- normal, no bruits or abnormal pulsations. Jugular vein- no pulsations. Palpation/Percussion- Normal PMI, no palpable thrill Auscultation- irregularly irregular rhythm. Rate is mildly tachycardic. Will add losartan/BB and see how he does. murmur III/ systolic left sternal border 4th intercostal space radiates into axill. Known MR. Extremities- digital clubbing, no cyanosis, mild depdent edema,poor foot health. NO increased warmth. ABDOMEN: Inspection- normal and no visible pulsations. Normal contour. Auscultation- Bowel sounds normal, no abdominal bruits. Palpation/Percussion- soft, non-tender, no rebound tenderness, no rigidity (guarding), no jar tenderness, no masses. Liver-no hepatomegaly, Spleen no splenomegaly, Hernias- none. Rectal not examined. No ascites, no HJR, no obvious JVD. Peripheral Vascular: Upper extremity Left- Normal temperature with pink nailbeds and no ulcerations. Upper extremity Right- Normal temperature with pink nailbeds and no ulcerations. Lower extremity- Normal temperature with pink nailbeds and no ulcerations. DP pulses 2+ bilaterally. Pedal hair intact. Normal capillary refill. Edema- No edema. Musculoskeletal: Generalized-No generalized swelling or edema of extremities, no digital clubbing or cyanosis, neurovascularly intact all four extremities. Upper extremity- Symmetrical posture. No visible deformity. Normal sensation along medial and lateral upper extremity proximally and distally. NO tenderness overlying shoulder, lateral/medial epicondyle. Server Programmer 5/5 and strength 5/5 bilate ral UE. Elbow palpated, no tenderness overlying olecranon. Normal supination, pronation to active/passive ROM and to resisted rotation. Bicep insertion/tricep insertion appear normal without obvious pathology. Rotator cuff evaluated and intact. Normal wrist ROM bilaterally. Normal hand movement, intrinsic muscles of hands normal. No tenderness to palpation of hands/wrists/elbows. Lower extremity- Hip: Not tender to palpation, no pain, no swelling, edema or erythema of surrounding tissue, normal strength and tone. Normal appearing hip ROM bilaterally without pain. Knee: Knee ROM normal. No tenderness overlying trochanters, no tenderness about patella, quad tendon, patellar tendon. No tenderness at tibial tuberosity. Ankle: normal ROM not tender to palpation along medial/lateral malleolus. Foot: Normal movement of toes, no tenderness bilateral feet/toes. Normal foot type. Callus, poor foot health. Spine/Ribs- No deformities, masses or tenderness, no known fractures, normal strength, Normal ROM. Normal stability No tenderness along C/T/L spine. Normal appearing ROM about spine. Neurological: General- Moves all 4 extremities symmetrically. Symmetrical face and body posture. Cranial nerves- individually evaluated II-XII and intact. PERRLA, Normal EOMI, visual/special senses appear intact, Face is symmetrical and normal sensation/movement, normal tongue, normal strength/posture of neck musculature. Reflexes- intact with DTR 2+ patellar, Achilles, bicep, brachial, tricep. Ankle clonus normal with 2 beats. Strength- 5/5 bilateral UE and LE. Soft touch- intact bilateral UE and LE. Temperature sensation- intact bilateral UE and LE. Neuropsych: Oriented- Person, place, time. (AAOx3), Mood/affect- normal and congruent. Able to articulate well. Speech-Normal speech, normal rate, normal tone, normal use of language, volume and coherence. Thought content- normal with ability to perform basic computations and apply abstract thought/reason. Associations- intact, no SI/HI, no hallucinations, delusions, obsessions. Judgment/insight- Appropriate. Memory-Recall intact, remote and recent memory intact. Knowledge- Age appropriate fund of knowledge, concentration and attention span normal. He is adamant that he has not done drugs. Lymphatic: Head/Neck- normal size and non tender to palpation. Axillary- normal size and non tender to palpation. Femoral and Inguinal- normal size and non tender to palpation. Allergies Allergies Allergy/AdvReac Type Severity Reaction Status Date / Time lisinopril Allergy Severe Swelling Verified 07/16/20 13:04 in [facility] Medical History Cardiac arrhythmia Shortness of breath Surgical History Status post cholecystectomy Status post tonsillectomy Family History Mother Cerebrovascular accident Hypertension FATHER Cardiac disease Grandfather/Grandmother Cancer Other Seasonal allergies Social History Smoking and tobacco status: Former smoker How long ago did patient quit smoking: MONTH AGO Medications Medications: Medications Generic Name Dose Route Start Last Admin Trade Name Freq PRN Reason Stop Dose Admin Furosemide 40 mg 07/27/20 06:30 Lasix IVP QDAC ODILON Ondansetron HCl 4 mg 07/27/20 01:20 Zofran 4 Mg/2 Ml IVP Q6H PRN Nausea / Vomiting Sodium Chloride 1 syr 07/27/20 13:00 Saline Flush IVF Q8HR ODILON Body Composition Height: 5 ft 9 in Weight: 147 lb 11.2 oz Body Mass Index (BMI): 21.8 Vital Signs Temperature: 98.4 F Pulse Rate: 110 Respiratory Rate: 24 Blood Pressure: 153/99 O2 Sat by Pulse Oximetry: 96 Lab/Tests/Diagnostic Imaging Lab/Tests/Diagnostic Imaging: Lab Review 07/26/20 07/26/20 07/26/20 23:50 23:50 23:50 WBC 8.58 RBC 4.46 L Hgb 13.2 L Hct 41.7 L MCV 93.5 MCH 29.6 MCHC 31.7 L RDW Coeff of Mariama 16.8 H Plt Count 280 Immature Gran % (Auto) 0.2 Neut % (Auto) 72.7 Lymph % (Auto) 18.6 [place] % (Auto) 7.8 Eos % (Auto) 0.5 Baso % (Auto) 0.2 Neut # (Auto) 6.2 Lymph # (Auto) 1.6 [place] # (Auto) 0.7 Eos # (Auto) 0.0 Baso # (Auto) 0.0 Immature Gran # (Auto) 0.0 Sodium 139.7 Potassium 4.05 Chloride 107.4 H Carbon Dioxide 28.0 Anion Gap 8.35 BUN 28.9 H Creatinine 1.55 H Estimated GFR (MDRD) 55.00 BUN/Creatinine Ratio 18.64 Glucose 94.8 Lactic Acid Calcium 8.95 Total Bilirubin 0.52 AST 44.2 ALT 36.7 Alkaline Phosphatase 104.3 Total Creatine Kinase 81.1 Troponin I 0.091 NT-Pro-B Natriuret Pep Total Protein 6.81 Albumin 3.50 Globulin 3.31 Albumin/Globulin Ratio 1.05 Procalcitonin D-Dimer 422.35 Urine Opiates Screen Ur Oxycodone Screen Urine Methadone Screen Ur Propoxyphene Screen Ur Barbiturates Screen U Tricyclic Antidepress Ur Phencyclidine Scrn Ur Amphetamine Screen U Methamphetamines Scrn U Benzodiazepines Scrn Urine Cocaine Screen U Cannabinoids Screen SARS-CoV-2 RNA (RT-PCR) 07/26/20 07/26/20 07/27/20 23:50 23:50 00:25 WBC RBC Hgb Hct MCV MCH MCHC RDW Coeff of Mariama Plt Count Immature Gran % (Auto) Neut % (Auto) Lymph % (Auto) [place] % (Auto) Eos % (Auto) Baso % (Auto) Neut # (Auto) Lymph # (Auto) [place] # (Auto) Eos # (Auto) Baso # (Auto) Immature Gran # (Auto) Sodium Potassium Chloride Carbon Dioxide Anion Gap BUN Creatinine Estimated GFR (MDRD) BUN/Creatinine Ratio Glucose Lactic Acid Calcium Total Bilirubin AST ALT Alkaline Phosphatase Total Creatine Kinase Troponin I NT-Pro-B Natriuret Pep 5340.000 H Total Protein Albumin Globulin Albumin/Globulin Ratio Procalcitonin < 0.05 D-Dimer Urine Opiates Screen Ur Oxycodone Screen Urine Methadone Screen Ur Propoxyphene Screen Ur Barbiturates Screen U Tricyclic Antidepress Ur Phencyclidine Scrn Ur Amphetamine Screen U Methamphetamines Scrn U Benzodiazepines Scrn Urine Cocaine Screen U Cannabinoids Screen SARS-CoV-2 RNA (RT-PCR) 07/27/20 07/27/20 07/27/20 00:43 01:35 05:15 WBC 7.17 RBC 4.16 L Hgb 12.4 L Hct 38.0 L MCV 91.3 MCH 29.8 MCHC 32.6 RDW Coeff of Mariama 16.6 H Plt Count 257 Immature Gran % (Auto) 0.4 Neut % (Auto) 90.3 H Lymph % (Auto) 8.5 L [place] % (Auto) 0.8 Eos % (Auto) 0.0 Baso % (Auto) 0.0 Neut # (Auto) 6.5 Lymph # (Auto) 0.6 [place] # (Auto) 0.1 L Eos # (Auto) 0.0 Baso # (Auto) 0.0 Immature Gran # (Auto) 0.0 Sodium Potassium Chloride Carbon Dioxide Anion Gap BUN Creatinine Estimated GFR (MDRD) BUN/Creatinine Ratio Glucose Lactic Acid 1.49 Calcium Total Bilirubin AST ALT Alkaline Phosphatase Total Creatine Kinase Troponin I NT-Pro-B Natriuret Pep Total Protein Albumin Globulin Albumin/Globulin Ratio Procalcitonin D-Dimer Urine Opiates Screen Negative Ur Oxycodone Screen Negative Urine Methadone Screen Negative Ur Propoxyphene Screen Negative Ur Barbiturates Screen Negative U Tricyclic Antidepress Negative Ur Phencyclidine Scrn Negative Ur Amphetamine Screen Negative U Methamphetamines Scrn Negative U Benzodiazepines Scrn Positive H Urine Cocaine Screen Positive H U Cannabinoids Screen Negative SARS-CoV-2 RNA (RT-PCR) 07/27/20 05:15 WBC RBC Hgb Hct MCV MCH MCHC RDW Coeff of Mariama Plt Count Immature Gran % (Auto) Neut % (Auto) Lymph % (Auto) [place] % (Auto) Eos % (Auto) Baso % (Auto) Neut # (Auto) Lymph # (Auto) [place] # (Auto) Eos # (Auto) Baso # (Auto) Immature Gran # (Auto) Sodium 139.0 Potassium 4.17 Chloride 105.5 Carbon Dioxide 29.7 Anion Gap 7.97 BUN 27.4 H Creatinine 1.40 H Estimated GFR (MDRD) 62.00 BUN/Creatinine Ratio 19.57 Glucose 135.0 H Lactic Acid Calcium 8.79 Total Bilirubin AST ALT Alkaline Phosphatase Total Creatine Kinase Troponin I NT-Pro-B Natriuret Pep Total Protein Albumin Globulin Albumin/Globulin Ratio Procalcitonin D-Dimer Urine Opiates Screen Ur Oxycodone Screen Urine Methadone Screen Ur Propoxyphene Screen Ur Barbiturates Screen U Tricyclic Antidepress Ur Phencyclidine Scrn Ur Amphetamine Screen U Methamphetamines Scrn U Benzodiazepines Scrn Urine Cocaine Screen U Cannabinoids Screen SARS-CoV-2 RNA (RT-PCR) Orders Category Date Time Status ADMIT OBSERVATION [PLACE PATIENT OBSERVATION] .TO ADMISSION 07/27/20 01:37 Active MEDSURG (MONITORED BED) EKG-(ED ONLY) Stat CARDIO 07/26/20 23:28 Completed ACTIVITY .Up ad Arianna CARE 07/27/20 01:21 Active INTAKE & OUTPUT Q8HR CARE 07/27/20 01:21 Active TELEMETRY MONITORING TELE CARE 07/27/20 01:38 Active 2 GRAM SODIUM DIET DIETARY 07/27/20 Breakfast Ordered ED IV/MEDIPORT/POWERPORT .ONCE EMERGENCY 07/26/20 23:34 Active BASIC METABOLIC PANEL DAILY@0600 LAB 07/27/20 05:15 Completed BASIC METABOLIC PANEL DAILY@0600 LAB 07/28/20 06:00 Ordered BLOOD CULTURE (ED ONLY) Stat LAB 07/26/20 Received CBC W/ AUTO DIFF DAILY@0600 LAB 07/27/20 05:15 Completed CBC W/ AUTO DIFF DAILY@0600 LAB 07/28/20 06:00 Ordered CBC W/ AUTO DIFF Stat LAB 07/26/20 23:50 Completed COMPREHENSIVE METABOLIC PANEL Stat LAB 07/26/20 23:50 Completed COVID19, PCR IDPH Stat LAB 07/26/20 00:25 Completed CREATINE KINASE Stat LAB 07/26/20 23:50 Completed D-DIMER Stat LAB 07/26/20 23:50 Completed DRUG SCREEN, URINE, RAPID Stat LAB 07/27/20 01:35 Completed LACTIC ACID Stat LAB 07/26/20 23:36 Completed NT-PROBNP Stat LAB 07/26/20 23:50 Completed PROCALCITONIN Stat LAB 07/26/20 23:50 Completed TROPONIN I Stat LAB 07/26/20 23:50 Completed 0.9 % Sodium Chloride [Saline Flush] MEDS 07/26/20 23:34 Discontinued 1 syr IVF PRN PRN 0.9 % Sodium Chloride [Saline Flush] MEDS 07/27/20 13:00 Active 1 syr IVF Q8HR Furosemide [Lasix] MEDS 07/27/20 01:01 Discontinued 40 mg IVP ONCE STA Furosemide [Lasix] MEDS 07/27/20 06:30 Active 40 mg IVP QDAC Methylprednisolone Sod Succ/Pf [Solu-Medrol 125 mg] MEDS 07/26/20 23:35 Discontinued 125 mg IVP ONCE STA Ondansetron HCl/Pf [Zofran 4 mg/2 ml] MEDS 07/27/20 01:20 Active 4 mg IVP Q6H PRN RESUSCITATION STATUS Routine OTHERS 07/27/20 01:20 Ordered CHEST, 1V AP ONLY Stat RADS 07/26/20 23:28 Completed Medications Generic Name Dose Route Start Last Admin Trade Name Freq PRN Reason Stop Dose Admin Furosemide 40 mg 07/27/20 06:30 Lasix IVP QDAC ODILON Ondansetron HCl 4 mg 07/27/20 01:20 Zofran 4 Mg/2 Ml IVP Q6H PRN Nausea / Vomiting Sodium Chloride 1 syr 07/27/20 13:00 Saline Flush IVF Q8HR ODILON Discontinued Medications Generic Name Dose Route Start Last Admin Trade Name Freq PRN Reason Stop Dose Admin Furosemide 40 mg 07/27/20 01:01 07/27/20 01:24 Lasix IVP 07/27/20 01:02 40 mg ONCE STA Administration Methylprednisolone Sodium Succinate 125 mg 07/26/20 23:35 07/27/20 00:39 Solu-Medrol 125 Mg IVP 07/26/20 23:36 125 mg ONCE STA Administration Sodium Chloride 1 syr 07/26/20 23:34 07/27/20 00:40 Saline Flush IVF 1 syr PRN PRN Administration To flush IV Assessment (1) CHF exacerbation: Status: Acute Code(s): I50.9 - Heart failure, unspecified SNOMED Code(s): 963882572 Qualifiers: Heart failure type: unspecified Qualified Code(s): I50.9 - Heart failure, unspecified (2) Mitral regurgitation: Status: Acute (3) Left atrial dilatation: Status: Acute Code(s): I51.7 - Cardiomegaly SNOMED Code(s): 331131409 (4) Atrial fibrillation: Status: Acute Code(s): I48.91 - Unspecified atrial fibrillation SNOMED Code(s): 27867701 (5) Anticoagulation adequate: Status: Acute Code(s): Z79.01 - exterminator termite (current) use of anticoagulants SNOMED Code(s): 120931936 (6) Essential hypertension: Status: Acute Code(s): I10 - Essential (primary) hypertension SNOMED Code(s): 46160396 (7) CKD (chronic kidney disease): Status: Acute Code(s): N18.9 - Chronic kidney disease, unspecified SNOMED Code(s): 256382294 (8) Cocaine abuse: Status: Acute Code(s): F14.10 - Cocaine abuse, uncomplicated SNOMED Code(s): 33796180 (9) Non compliance w medication regimen: Status: Acute Code(s): Z91.14 - Patient's other noncompliance with medication regimen SNOMED Code(s): 861740691 (10) Former smoker: Status: Acute Code(s): Z87.891 - Personal history of nicotine dependence SNOMED Code(s): 3582937 Plan Plan: CHF/Mitral Regurgitation/Atrial Enlargement: The patient missed a dose of his lasix yesterday, due to his wanting to sleep. He was seen on 07/16 by me in clinic and we obtained his echo report from Dr. Burk. He has known Mitral regurg, known cocaine history, known diversion of valium from his Girlfriend, and tested positive again in our hospital for both cocaine and benzo diazepines. Per his most recent echo on 05/07/20 at [facility]: LV EF 36-40%, Left atrial dilatation, afib with RVR known at that time. He remains in afib, anticoag w/ eliquis. He is on amio, he is on dig. These will be continued. Patient has been noncompliant, he did not get labs I ordered on 07/16, he did get IV lasix at hospital and noted it helped a lot. He is now not on ARB as I thought he was taking entresto. He has not gotten the entresto due to insurance issues. He has had 3 step pulse ox, did not qualify for O2. He wants O2 but does not want to pay for O2. He does not appear to be in acute decompensation, rather chronic decompensation that is now starting to get managed after visits with new PCP (Me) and he has been referred to cardiology. The patient will be restarted on losartan 50mg daily by me, I will also start metoprolol succinate 25mg daily. He does not appear to be acutely decompensated and thus the BB should do well for him. Next step also consider aldactone based on CHF status. I have discussed benefits of entresto, will continue to work with insurance to get this covered. He has already had a total output of 2325 ml with good diuresis and is net negative nearly 2 L since being in hospital. Weight is at 144, which is already 3 lb less than admit. He was placed into PUI status due to swab in ED. He has to get tested for COVID-19 in [place] tomorrow so that he can have his oral surgery on 08/01/20. He has no COVID-19 symptoms. - Admit obs - Patient adamant that he needs to leave this pm to be able to leave for [facility] tomorrow. - He will be removed from PUI status as he has no symptoms, only surveillance for surgery scheduled 08/01/20. - Vitals q shift - Strict I+O - Lasix 40mg daily. - Restart losartan 50mg daily - Add metoprolol succinate 25mg daily. - Will d/c patient home this afternoon at his request. - Continue home meds. Afib/Anticoagulation: I have discussed the risks and benefits of using eliquis with the patient. I informed the patient of the risks associated with use of anticoagulation including but not limited to catastrophic and lifethreatening intracranial, visceral, and gastrointestinal bleeding. I discussed alternatives (Vit K inhibitors, direct thrombin inhibitors and factor Xa inhibitors) including oral Coumadin with initial LMWH and need for repeat/regular INR, oral Savaysa (Xa inhibitor) with initial LMWH x 5 days, Oral Pradaxa (thrombin inhibitor) with initial LMWH and Xarelto/Eliquis which do not require any injections. Discussed these meds have other names such as Warfarin, rivaroxaban, apixaban or edoxaban. The risks and interactions of each medication were discussed independently and compared to other anticoagulants. We reviewed proximal vs Deep DVT, PE, atrial fibrillation and discussed benefits/reasons for one over another. We discussed provoked vs unprovoked DVT and discussed some common causes of DVT. Discussed DDX today as listed. Discussed when to go to ER, caution for falls, caution for bleeding. I discussed the risks of bleeding as well as availability of reversal for each anticoagulant. After discussion of the above the patient has chosen to initiate anticoagulation. Please see order below. I am discussing/providing Rx for the anticoagulant in this patient due to efficacy and patient preference. The patient has been briefed on the risks and benefits of the agents and has voiced understanding and would like to proceed with anticoagulation. They are aware that the minimal tx course will be 3 months. If unprovoked or recurrent DVT this could be lifetime. Any tobacco should be stopped. If worsening, if fall, if injury would recommend urgent evaluation by ER. Afib with mildly tachycardic rate. Should improve with BB and losartan to bring BP down. I suspect cocaine effect as well. - Continue elquis BID. - Stop cocaine - Await cardiology f/u - Continue home meds - Add metoprolol succinate. Essential HTN: BP is not at goal. Good BP control is encouraged with Goal BP based on JNC 8 guidelines of <140/90 for this patient. Reviewed medications and discussed the typical first line agents to include thiazide diuretic or rajat-I or ARB or CCB alone or in combo. If not already owned, I recommended to the patient to obtain electronic home BP machine with upper arm blood pressure cuff and to check regularly as instructed. Keep BP log and bring to subsequent visits. Offered handout on HTN educational topics: HTN, Low sodium diet/DASH diet/Mediterranean diet. These were provided if patient requested these today. ADA diet encouraged. - Losartan 50mg daily - Metoprolol succinate 25mg CKD: Improving with diuresis. Last labs reviewed. Creatinine 1.79 07/10, 1.52 8, 1.55 initially ED and then 1.40 this am. GFR up from 47 on 07/10 to 62 this am with most recent blood work. Cocaine Use/Drug Diversion/Non compliance: I encouraged the patient in unambiguous language to consider the disease process and the treatment options offered. Needs to stop using cocaine, stop using other peoples medications. Treatments are designed to improve problems or to reduce bad outcomes and sometimes even . Discussed to take meds as recommended. If issues please call or return to office to discuss. If there are collado issues, contact clinic. If you cannot get to appt, we will get a 30 day supply to allow you to make it to office. Not taking meds, not following through with labs, not following through with specialist evaluation can lead to worsening condition, worse outcomes and possibly . If your insurance will not pay for a test/med/lab/etc., this does not mean that you do not need it. We may need to find other avenues to include [employer] pay for the item. Patient voiced understanding. Discussed letters may be sent out to patients exhibiting non complaint behavior, discussing the importance of following medical recommendations. Poor Dentition: He needs to go to [place] to get COVID-19 tested tomorrow am. He has surgery planned 08/01/20 in [place]. Diet: 2G low sodium DVT Prophy: Resume/continue home dose of eliquis. NOT A PUI: No symptoms of COVID-19. He needs test for preoperative clearance. Removed from PUI by me personally this am as no symptoms, no known exposures. Disposition: >70 minutes spent with patient today regarding above topics. Discussed again CHF, his home meds, his need to avoid tobacco (still not smoking), need to avoid cocaine specifically. Discussed his cardiac health is being directly harmed by his use of the cocaine. Remains in afib. Murmur known. He is adamant that he is needing to leave so that he can go to [place] in the am. He does not want to stay tonight. I discussed reasonable d/c today. Discussed BB discussed compensated/decompensated Afib and I discussed his overall care with him, with Dr. Duran this am, with am nursing. Plan is to d/c home this afternoon if he continues to have good diuresis. Non compliance with his lasix, insurance issues with entresto have both contributed to his mild worsening. CKD appears better, BP is up and new BP meds to be added to combat this. He agreed wiht plan. Needs oral surgery. Will try to get him out this afternoon, assuming he continues to improve, so that his surgery options are not affected.
[2020-07-27] MEDS ORDERED: LASIX IVP SCH (06:30)
[2020-07-27] MEDS: COZAAR PO SCH ×2 (07:32→08:29)
[2020-07-27] MEDS: TOPROL XL PO SCH ×2 (07:32→08:29)
[2020-07-27 09:58] VITALS: BP 130/90
--- NOTE | 2020-07-27 13:03 | PCM.DC ---
Final Diagnosis: CHF mild exacerbation: Echo 04/2020. Afib with RVR rhythm controlled Mitral valve regurgitation. Chronic anticoagualation elquis. CKD Hypertension Cocaine Use Medication diversion/using other peoples medications Non compliant behavior. (1) CHF exacerbation: Status: Acute Code(s): I50.9 - Heart failure, unspecified SNOMED Code(s): 324753937 Qualifiers: Heart failure type: unspecified Qualified Code(s): I50.9 - Heart failure, unspecified (2) Mitral regurgitation: Status: Acute (3) Left atrial dilatation: Status: Acute Code(s): I51.7 - Cardiomegaly SNOMED Code(s): 412014771 (4) Atrial fibrillation: Status: Acute Code(s): I48.91 - Unspecified atrial fibrillation SNOMED Code(s): 44942867 (5) Anticoagulation adequate: Status: Acute Code(s): Z79.01 - termite treater (current) use of anticoagulants SNOMED Code(s): 886935448 (6) Essential hypertension: Status: Acute Code(s): I10 - Essential (primary) hypertension SNOMED Code(s): 25615645 (7) CKD (chronic kidney disease): Status: Acute Code(s): N18.9 - Chronic kidney disease, unspecified SNOMED Code(s): 931893195 (8) Cocaine abuse: Status: Acute Code(s): F14.10 - Cocaine abuse, uncomplicated SNOMED Code(s): 78361582 (9) Non compliance w medication regimen: Status: Acute Code(s): Z91.14 - Patient's other noncompliance with medication regimen SNOMED Code(s): 139338227 (10) Former smoker: Status: Acute Code(s): Z87.891 - Personal history of nicotine dependence SNOMED Code(s): 4204190 Reason for Hospitalization: Shortness of breath, peripheral edema, lung crackles, weight gain c/w CHF exacerbation Prognosis at Discharge: Back to baseline. Medically optimized with hospital admission. Condition at Discharge: Improved. Diuresis of 1.5L with single dose of IV lasix, similar to outpatient treatment before. Medications at Discharge: Ambulatory Orders Medication Instructions Recorded amiodarone 200 mg PO DAILY 04/28/19 albuterol sulfate [Ventolin HFA] 2 puff IH Q6H PRN #8.5 gm 07/10/20 digoxin 125 mcg PO DAILY 07/10/20 apixaban 5 mg tablet 5 mg PO BID #60 tab 07/11/20 furosemide 40 mg PO DAILY 07/27/20 losartan 50 mg PO DAILY #30 tab 07/27/20 metoprolol succinate [Toprol XL] 25 mg PO DAILY #30 tab 07/27/20 Lab/Diagnostics: Laboratory Results - last 24 hr 07/26/20 07/26/20 07/26/20 23:50 23:50 23:50 WBC 8.58 RBC 4.46 L Hgb 13.2 L Hct 41.7 L MCV 93.5 MCH 29.6 MCHC 31.7 L RDW Coeff of Mariama 16.8 H Plt Count 280 Immature Gran % (Auto) 0.2 Neut % (Auto) 72.7 Lymph % (Auto) 18.6 Kimble % (Auto) 7.8 Eos % (Auto) 0.5 Baso % (Auto) 0.2 Neut # (Auto) 6.2 Lymph # (Auto) 1.6 Kimble # (Auto) 0.7 Eos # (Auto) 0.0 Baso # (Auto) 0.0 Immature Gran # (Auto) 0.0 Sodium 139.7 Potassium 4.05 Chloride 107.4 H Carbon Dioxide 28.0 Anion Gap 8.35 BUN 28.9 H Creatinine 1.55 H Estimated GFR (MDRD) 55.00 BUN/Creatinine Ratio 18.64 Glucose 94.8 Lactic Acid Calcium 8.95 Total Bilirubin 0.52 AST 44.2 ALT 36.7 Alkaline Phosphatase 104.3 Total Creatine Kinase 81.1 Troponin I 0.091 NT-Pro-B Natriuret Pep Total Protein 6.81 Albumin 3.50 Globulin 3.31 Albumin/Globulin Ratio 1.05 Procalcitonin D-Dimer 422.35 Urine Opiates Screen Ur Oxycodone Screen Urine Methadone Screen Ur Propoxyphene Screen Ur Barbiturates Screen U Tricyclic Antidepress Ur Phencyclidine Scrn Ur Amphetamine Screen U Methamphetamines Scrn U Benzodiazepines Scrn Urine Cocaine Screen U Cannabinoids Screen SARS-CoV-2 RNA (RT-PCR) 07/26/20 07/26/20 07/27/20 23:50 23:50 00:25 WBC RBC Hgb Hct MCV MCH MCHC RDW Coeff of Mariama Plt Count Immature Gran % (Auto) Neut % (Auto) Lymph % (Auto) Kimble % (Auto) Eos % (Auto) Baso % (Auto) Neut # (Auto) Lymph # (Auto) Kimble # (Auto) Eos # (Auto) Baso # (Auto) Immature Gran # (Auto) Sodium Potassium Chloride Carbon Dioxide Anion Gap BUN Creatinine Estimated GFR (MDRD) BUN/Creatinine Ratio Glucose Lactic Acid Calcium Total Bilirubin AST ALT Alkaline Phosphatase Total Creatine Kinase Troponin I NT-Pro-B Natriuret Pep 5340.000 H Total Protein Albumin Globulin Albumin/Globulin Ratio Procalcitonin < 0.05 D-Dimer Urine Opiates Screen Ur Oxycodone Screen Urine Methadone Screen Ur Propoxyphene Screen Ur Barbiturates Screen U Tricyclic Antidepress Ur Phencyclidine Scrn Ur Amphetamine Screen U Methamphetamines Scrn U Benzodiazepines Scrn Urine Cocaine Screen U Cannabinoids Screen SARS-CoV-2 RNA (RT-PCR) 07/27/20 07/27/20 07/27/20 00:43 01:35 05:15 WBC 7.17 RBC 4.16 L Hgb 12.4 L Hct 38.0 L MCV 91.3 MCH 29.8 MCHC 32.6 RDW Coeff of Mariama 16.6 H Plt Count 257 Immature Gran % (Auto) 0.4 Neut % (Auto) 90.3 H Lymph % (Auto) 8.5 L Kimble % (Auto) 0.8 Eos % (Auto) 0.0 Baso % (Auto) 0.0 Neut # (Auto) 6.5 Lymph # (Auto) 0.6 Kimble # (Auto) 0.1 L Eos # (Auto) 0.0 Baso # (Auto) 0.0 Immature Gran # (Auto) 0.0 Sodium Potassium Chloride Carbon Dioxide Anion Gap BUN Creatinine Estimated GFR (MDRD) BUN/Creatinine Ratio Glucose Lactic Acid 1.49 Calcium Total Bilirubin AST ALT Alkaline Phosphatase Total Creatine Kinase Troponin I NT-Pro-B Natriuret Pep Total Protein Albumin Globulin Albumin/Globulin Ratio Procalcitonin D-Dimer Urine Opiates Screen Negative Ur Oxycodone Screen Negative Urine Methadone Screen Negative Ur Propoxyphene Screen Negative Ur Barbiturates Screen Negative U Tricyclic Antidepress Negative Ur Phencyclidine Scrn Negative Ur Amphetamine Screen Negative U Methamphetamines Scrn Negative U Benzodiazepines Scrn Positive H Urine Cocaine Screen Positive H U Cannabinoids Screen Negative SARS-CoV-2 RNA (RT-PCR) 07/27/20 05:15 WBC RBC Hgb Hct MCV MCH MCHC RDW Coeff of Mariama Plt Count Immature Gran % (Auto) Neut % (Auto) Lymph % (Auto) Kimble % (Auto) Eos % (Auto) Baso % (Auto) Neut # (Auto) Lymph # (Auto) Kimble # (Auto) Eos # (Auto) Baso # (Auto) Immature Gran # (Auto) Sodium 139.0 Potassium 4.17 Chloride 105.5 Carbon Dioxide 29.7 Anion Gap 7.97 BUN 27.4 H Creatinine 1.40 H Estimated GFR (MDRD) 62.00 BUN/Creatinine Ratio 19.57 Glucose 135.0 H Lactic Acid Calcium 8.79 Total Bilirubin AST ALT Alkaline Phosphatase Total Creatine Kinase Troponin I NT-Pro-B Natriuret Pep Total Protein Albumin Globulin Albumin/Globulin Ratio Procalcitonin D-Dimer Urine Opiates Screen Ur Oxycodone Screen Urine Methadone Screen Ur Propoxyphene Screen Ur Barbiturates Screen U Tricyclic Antidepress Ur Phencyclidine Scrn Ur Amphetamine Screen U Methamphetamines Scrn U Benzodiazepines Scrn Urine Cocaine Screen U Cannabinoids Screen SARS-CoV-2 RNA (RT-PCR) CXR: Vascular congestion. Education Provided to Patient and Family: 1. Losartan 50 mg daily. R/B/A to meds d/w patient, SE reviewed, handout offered regarding medications listed. Ideally on entresto, not covered by insurance however. Will resume ARB> 2. Metoprolol Succinate 25mg daily. R/B/A to meds d/w patient, SE reviewed, handout offered regarding medications listed. 3. Continue amiodarone 4. Continue elquis 5. Continue digoxin 6. STOP COCAINE 7. Do not take other peoples medications. 8. Await COVID-19 surveillance testing. 9. Plans to get dental work done 08/01. 10. Keep appt with me on thursday at 1300. 11. Dash low sodium diet. Please take medications as recommended. Please get a scale and check weight every day. If >3 pound increase in 48-72 hours need to contact clinic. Lasix 40mg daily. Avoid excess fluid. Low salt diet. Continue to avoid tobacco. Follow-ups: Dr. Caldera 1300 Thursday07/30/20. Discharge Disposition: Home Hospital Course: History of Present Illness: 65 yo AAM with known history of CHF, former smoker, hypoxia, cocaine use presented to [facility] ED on 07/26/20 at 23:[address] Duran. Relatively new patient of mine with #2 visits with me regarding his CHF and cocaine usage. Patient walked into the ED vitals temp 96.8, pulse 91, rr 24, bp 183/141, pulse ox 98. Weight noted 07/27 to be 147, 07/26 was 149, 07/16 was 150, 142 on 07/11, 146 on 07/10 and 139 on 05/07/20. Patient reported >10 lb weight gain, edema, anxiety, irregular heart rate to ED provider. Upon physical exam he was noted to be illappearing, mild crackles bilateral bases, RRR, normal pulses, murmur appreciated, edema bilateral L>R ankles. CXR ordered and patietn found to have pulmonary vascular congestion and trace bilateral pleural effusions. EKG completed RBBB and atrial fibrillation. Labs evaluated and patient found to have CBC: WBC 8.59, hgb 13.2, plt 280. MCV normal at 93.5, rdw elevated 16.8.CMP with Sodium 139.7, K+ 4.05, BUN 28.9, Cr 1.55, glucose 94.8. Ddimer 422.35, Troponin I 0.091, Creatinine elevated as noted with baseline over last 30-60 days approximately 1.4-1.52 and GFR 38-62. The patient NT-PRO-BNP was found to be 5340, procalcitonin of <0.05. CK of 81.1. He was given lasix IVP 40mg, solumedrol 125 IV once in the ED. I was contacted at 01:19 and case was discussed with Dr. Duran directly. I was concerned with patietn cocaine use, I noted this to the ED provider who ordered Tox screen at my request. Patient was BZO and Cocaine positive again, similar results to that found on 07/10/20. Patient and I had a very servando discussion in last OV about cocaine use and how this affects the heart. He agreed to stop cocaine at last OV, but with continued + it appears he is continuing to use this substance. The patient has known history of CHF, afib, anticoag on eliquis 5 BID, amiodarone 200 daily, dig 125mcg daily, allergy to lisinopril, we are struggling with insurance to get entresto covered, and we are currently in pro cess of getting him to meet with cardiology. He was admitted to in felt 05/07-05/12 with CHF and met with DR. Burk while in patient at that facility. Echocardiogram completed LV systolic function moderately decreased with EF36- 40%., LV cavity mildly dilated,, severe mitral regurgitation, Left atria severely dilated, RV mildly dilated and has preserved function. Rhythm Afib with RVR. Vitals overnight BP 183/141 at 23:07 07/26, was 149/107 07/27/20, 153/99 0325, 144/108 0600, 153/99 06:09. HR have been 91-117. Afebrile throughout stay. O2 93-98%. He was admitted to obs status in room SCU-1. I discussed case with am nurses, reviewed early am documentation, and discussed care with team directly starting at 06:00. I talked with patient and found him to be in isolation as PUI. Patient has no URI, no fever, no MUJICA, no body aches, no chills, no vision changes, no loss of taste/smell, No new URI symptoms, no new allergy symptoms, mild cough from vascular congestion due to fluid overload, mild wheezing and SOA explained by CHF exacerbation, No CP, reported fatigue, no abd pain, no N/V/D, no constipation, no changes in urination/stooling, no new MSK pain, no recent injuries except as listed above. Fall history reviewed and negative. The patient is supposed to leave at 7 am tomorrow to go to [place] to have a mandatory swab for COVID-19 prior to his oral surgery/extraction on 08/01/20. He was seen in ED 07/10/20, then by me on 07/11 and 07/16. I discussed with him at last OV that cocaine can be detectable in urine up to 4 days. He had admitted to using GF valium at last OV. We discussed again today 30-56 hour half life. It can take up to 10 days for this to leave your system, metabolites even longer. The patient this am was adamant that he did not use this agent, nor did he use cocaine. I discussed benzo Valium can stay positive in urine for several weeks but based on his history he has not used anything since 2 days before our last visit. He has been using water pill, got tired of it and decided to not take any yesterday as he wanted to sleep. He states "on my mothers grave" that he did not use cocaine or benzos. He asked about pain pills? I noted they did not show up but again noted it was not allowable to be using medications that are not rx to him in the first place. "oh, oh, oh." He did not qualify for o2 with the 3step pulse oximetry and he is wanting oxygen. I noted he can pay for this himself but insurance will not cover this, just like the entresto. I will resume Losartan 50mg, will add metoprolol succinate 25mg daily today. He is adamant that he wants to leave as he has to leave for [place] in the am. He is not in any worse state than when I saw him in clinic on 07/16. He is talking in full sentences. AAOx3. I talked with nursing and he is not a PUI, he is undergoing surveillance for surgery. The patient has no s/sx of COVID-19, has a mild exacerbation of CHF that appears to be chronically poor. He is leaving tomorrow am, does not want to stay. Based on his health currently, I do not have any acute reason to keep him in the hospital. I will remove him from PUI status, I will add losartan 50mg as noted above, metoprolol succinate 25mg daily and see him in clinic in 1 week. He has 0 more warnings at this time about his drug use. I am concerned for chronic cocaine and non compliance/abuse of benzo as well. He does not appear to be in acute decompensated CHF, rather he appears to be in chronic CHF that has thus far been incompletely managed. Again as noted above, we have tried to get him his entresto, but not covered. In lieu of this, I will resume his losartan, I will add BB. Again, not acutely decompensated. Weight is about what it was in clinic, lungs similar. Patient missed a dose of meds, he wanted o2, he feels better on o2 but does not qualify. He does not want to pay out of pocket. 2325ml diuresis. Net negative 1465 ml out. Patient requested to leave this pm to get himself back to [place] tomorrow. REVIEW OF SYMPTOMS: (Positives bolded) General: weight gain, fever, chills, night sweats, fatigue, appetite loss HEENT: blurry vision, eye pain, eye discharge, dry eyes, decreased vision, sore throat tinnitus, bloody nose, hearin gloss, sinus pain/pressure, ear pain/pressure. Respiratory: shortness of breath, cough, hemoptysis, wheezing, pleurisy, Cardiovascular: chest pain, PND, palpitation, edema, orthopnea, syncope, swelling of extremities Gastro: Nausea, vomiting, diarrhea, hematemesis, abdominal pain, constipation Genito: hematuria, dysuria, glycosuria, hesitancy, frequency, incontinence Musckelo: Arthralgia, myalgia, muscle weakness, joint swelling, NSAID use Skin: rash, pruritis, sores, nail changes, skin thickening, change in wart/mole, itching, rash, new lesions, pruritus, nail changes, Chronic callus feet. Neuro: Migraine, numbness, ataxia, tremor, vertigo, weakness, memory loss, Irritability, dizziness Endocrine: excessive thirst, polyuria, cold intolerance, heat intolerance, goiter Psychiatric: depression, anxiety, anti-depressants, alcohol abuse, drug abuse, insomnia, change in sleep pattern and mood changes Heme/lymph: easy bruising, bleeding gums, blood clots, swollen glands, lymphedema, Allergic/immune: allergic rhinitis, hay fever, asthma, hives Vital Signs - 24 hr 07/26/20 23:07 07/27/20 01:53 07/27/20 02:30 Temperature 96.8 F L 98.4 F Pulse Rate 91 H 110 H 117 H Respiratory Rate 24 28 H 28 H Blood Pressure 183/141 H 149/107 H O2 Sat by Pulse Oximetry 98 98 93 L 07/27/20 03:25 07/27/20 06:00 07/27/20 06:09 Temperature 98.1 F 98.4 F Pulse Rate 110 H 110 H 110 H Respiratory Rate 24 20 24 Blood Pressure 153/99 H 144/108 H 153/99 H O2 Sat by Pulse Oximetry 96 93 L 96 07/27/20 08:00 07/27/20 09:57 Temperature Pulse Rate 95 H Respiratory Rate 20 20 Blood Pressure 130/90 O2 Sat by Pulse Oximetry 98 Constitutional: Appearance-No acute distress, Consistent with stated age. Talks in complete sentences. Orientation- Oriented x 3, alert Build and Nutrition- normal.] General- Patient is pleasant and cooperative with the interview and exam. Denied drug use despite repeat UDS+ BZO and Cocaine. Integumentary: General-No rashes, ulcers or lesions. Palpation- Normal skin moisture/turgor. Skin is warm to touch, appropriate. Capillary refill is normal bilateral Upper and lower extremity. Mild edema bilateral lower extremities about the ankles. Head/Neck: Head- normocephalic and atraumatic. Neck- without visible/palpable lumps or pulsations. Palpation- No bony tenderness about head/neck along fron farooq, occipital, temporal, parietal, mastoid, jawline, zygoma, orbit or any other location. NO temporal artery tenderness. No TMJ tenderness. Neck Supple. Thyroid-No thyromegaly, no nodules Eye: Bilaterally PERRLA, EOMI. No discharge. Upper and lower eyelids are normal. Sclera/conjunctiva normal without discharge. Cornea is normal and clear. Lens is normal. Eyeball appears normal. No ciliary flushing, no conjunctival injection. ENMT: Pinna- normal without tenderness or erythema. External auditory canal Left- normal without erythema or discharge, no excessive cerumen. External auditory canal Right-normal without erythema or discharge, no excessive cerumen. TM left- Retana/pearly, normal light reflex and anatomy TM Right- Retana/pearly, normal light reflex and anatomy Hearing Assessment-normal to conversational speech. Nose and sinus- No sinus tenderness along frontal/maxillary region. External appearance normal and midline. Nares- bilateral quiet airflow, no discharge. Nasal mucosa- No bleeding noted and no ulcerations observed. Penelope, moist. Turbinates non boggy. Lips- normal color, moist without cracks/lesions Oral Cavity/Palate- hard/soft palate intact without lesions, oral mucosa pink and moist. Dentition assessed [and poor] and discussed appropriate oral care. Tongue normal midline. Oropharynx- no pharyngeal erythema, Uvula midline. No post nasal drip. No exudate. Salivary glands- Non tender to palpation CHEST/LUNG: Inspection- symmetric chest wall no pectus deformity. Normal effort, no distress, no use of accessory muscles. Palpation- nontender sternum, ribline. No abnormal pulsations. Auscultation- Breath sounds normal throughout all lung yu but reduced. Normal tracheal sounds, Normal bronchial sounds overlying sternum, Bronchovessicular sounds normal between scapulae posteriorly, Normal vessicular breath sounds heard throughout periphery. Lungs are clear today. Adventitious sounds- scattered wheezes, lower lung crackles. rhonchi. CARDIOVASCULAR: Carotid artery- normal, no bruits or abnormal pulsations. Jugular vein- no pulsations. Palpation/Percussion- Normal PMI, no palpable thrill Auscultation- irregularly irregular rhythm. Rate is mildly tachycardic. Will add losartan/BB and see how he does. murmur III/ systolic left sternal border 4th intercostal space radiates into axill. Known MR. Extremities- digital clubbing, no cyanosis, mild depdent edema,poor foot health. NO increased warmth. ABDOMEN: Inspection- normal and no visible pulsations. Normal contour. Auscultation- Bowel sounds normal, no abdominal bruits. Palpation/Percussion- soft, non-tender, no rebound tenderness, no rigidity (guarding), no jar tenderness, no masses. Liver-no hepatomegaly, Spleen no splenomegaly, Hernias- none. Rectal not examined. No ascites, no HJR, no obvious JVD. Peripheral Vascular: Upper extremity Left- Normal temperature with pink nailbeds and no ulcerations. Upper extremity Right- Normal temperature with pink nailbeds and no ulcerations. Lower extremity- Normal temperature with pink nailbeds and no ulcerations. DP pulses 2+ bilaterally. Pedal hair intact. Normal capillary refill. Edema- No edema. Musculoskeletal: Generalized-No generalized swelling or edema of extremities, no digital clubbing or cyanosis, neurovascularly intact all four extremities. Upper extremity- Symmetrical posture. No visible deformity. Normal sensation along medial and lateral upper extremity proximally and distally. NO tenderness overlying shoulder, lateral/medial epicondyle. Time Study Technologist 5/5 and strength 5/5 bilateral UE. Elbow palpated, no tenderness overlying olecranon. Normal supination, pronation to active/passive ROM and to resisted rotation. Bicep insertion/tricep insertion appear normal without obvious pathology. Rotator cuff evaluated and intact. Normal wrist ROM bilaterally. Normal hand movement, intrinsic muscles of hands normal. No tenderness to palpation of hands/wrists/elbows. Lower extremity- Hip: Not tender to palpation, no pain, no swelling, edema or erythema of surrounding tissue, normal strength and tone. Normal appearing hip ROM bilaterally without pain. Knee: Knee ROM normal. No tenderness overlying trochanters, no tenderness about patella, quad tendon, patellar tendon. No tenderness at tibial tuberosity. Ankle: normal ROM not tender to palpation along medial/lateral malleolus. Foot: Normal movement of toes, no tenderness bilateral feet/toes. Normal foot type. Callus, poor foot health. Spine/Ribs- No deformities, masses or tenderness, no known fractures, normal strength, Normal ROM. Normal stability No tenderness along C/T/L spine. Normal appearing ROM about spine. Neurological: General- Moves all 4 extremities symmetrically. Symmetrical face and body posture. Cranial nerves- individually evaluated II-XII and intact. PERRLA, Normal EOMI, visual/special senses appear intact, Face is symmetrical and normal sensation/movement, normal tongue, normal strength/posture of neck musculature. Reflexes- intact with DTR 2+ patellar, Achilles, bicep, brachial, tricep. Ankle clonus normal with 2 beats. Strength- 5/5 bilateral UE and LE. Soft touch- intact bilateral UE and LE. Temperature sensation- intact bilateral UE and LE. Neuropsych: Oriented- Person, place, time. (AAOx3), Mood/affect- normal and congruent. Able to articulate well. Speech-Normal speech, normal rate, normal tone, normal use of language, volume and coherence. Thought content- normal with ability to perform basic computations and apply abstract thought/reason. Associations- intact, no SI/HI, no hallucinations, delusions, obsessions. Judgment/insight- Appropriate. Memory-Recall intact, remote and recent memory intact. Knowledge- Age appropriate fund of knowledge, concentration and attention span normal. He is adamant that he has not done drugs. Lymphatic: Head/Neck- normal size and non tender to palpation. Axillary- normal size and non tender to palpation. Femoral and Inguinal- normal size and non tender to palpation.
[2020-07-28] MEDS ORDERED: LASIX IVP SCH (06:30)
== END 2020-07-27 13:25 | disposition home or self-care (01) ==
LOC: SCU 23:05 → ED 23:05 → SCU 07-27 01:59
PROVIDERS: ADMIT Family Medicine; ATTEND Family Medicine
DX: R09.02 Hypoxemia; R06.02 Shortness of breath; Z87.891 Personal history of nicotine dependence; I51.7 Cardiomegaly; F14.10 Cocaine abuse, uncomplicated; Z91.14 Patient's other noncompliance with medication regimen; I10 Essential (primary) hypertension; I45.19 Other right bundle-branch block; R05 Cough; Z79.01 Long term (current) use of anticoagulants; Z51.81 Encounter for therapeutic drug level monitoring; I48.91 Unspecified atrial fibrillation; I50.9 Heart failure, unspecified; Z79.899 Other long term (current) drug therapy; L84 Corns and callosities; I34.0 Nonrheumatic mitral (valve) insufficiency; R53.83 Other fatigue; Z03.818 Encounter for observation for suspected exposure to other biological agents ruled out; N18.9 Chronic kidney disease, unspecified

== ENCOUNTER 2022-06-10 09:57 | Inpatient (IN) ==
--- NOTE | 2022-06-10 10:30 | ED.PDOC ---
General <MORIAH GUTIERREZ MD - Last Filed: 06/10/22 18:26> ED Provider: Dr. MORIAH GUTIERREZ MD Chief Complaint: Respiratory Complaint Stated Complaint: mild off and on dry cough and short of breath w/ bruno, no chest pain today, no fever, no NV, hx noncompliance, atrial fib, chf, cva w/ left leg brace Time Seen by Provider: 06/10/22 10:09 Primary Care Provider: DEREK MARTE MD Sepsis Protocol: For patient's 13 years and over: Temp is 96.8 and below OR 101 and greater Pulse >90 BPM Resp >20/minute Acutely Altered Mental Status Are patient's symptoms suggestive of a new infection, such as: -Pneumonia -Skin, Soft Tissue -Endocarditis -UTI -Bone, Joint Infection -Implantable Device -Acute Abdominal Infection -Wound Infection -Meningitis -Blood Stream Catheter Infection -Unknown <NICK WHELAN MD - Last Filed: 06/10/22 21:26> Nursing and Triage Documentation Reviewed and Agree: Yes Does patient meet sepsis criteria?: No System Inflammatory Response Syndrome: Pulse >90 BPM Review of Systems <MORIAH GUTIERREZ MD - Last Filed: 06/10/22 18:26> Review Of Systems Constitutional: Denies Fever Eyes: Denies Vision change Ears, Nose, Mouth, Throat: Denies Throat pain Respiratory: Reports Cough and Short of air; Denies Stridor Cardiac: Denies Chest pain GI: Denies Abdominal pain or Vomiting : Denies Dysuria Musculoskeletal: Denies Neck pain Skin: Denies Rash Neurological: Denies Cognitive dysfunction All Other Systems: Other PFSH <MORIAH GUTIERREZ MD - Last Filed: 06/10/22 18:26> Medical History (Updated 06/10/22 @ 21:26 by NICK WHELAN MD) Cardiac arrhythmia snf resident Shortness of breath Stroke Family History Mother Cerebrovascular accident Hypertension FATHER Cardiac disease Grandfather/Grandmother Cancer Other Seasonal allergies Social History Smoking and tobacco status: Current every day smoker Tobacco type: cigarettes Tobacco: How many years used: 30 Passive smoking exposure: No How long ago did patient quit smoking: MONTH AGO Quit status: has quit before Alcohol intake: current Alcohol intake frequency: holidays/special occasions only Substance use type: does not use Carla/advent: none Special carla needs: No Agree to transfusion: No Adopted: No Caregiver/support person: Yes Household members: spouse and family Housing: house Lives independently: Yes Highest education level completed: high school graduate Financial difficulty paying for basics: not applicable service: No Current occupational status: retired Current occupational exposures/hazards: No Pets and animals: Yes Leisure activites: fishing History of recent travel: No Do you think of yourself as: straight/heterosexual Current gender identity: male Seatbelt use: always Helmet use: No (N/A) Drives intoxicated or rides with intoxicated regional tanker truck driver: No Water heater temperature set < 120 degrees: Yes Working smoke detector in home: Yes Fire extinguisher in home: Yes Carbon monoxide detector in home: No Firearms in home: No Surgical History H/O tooth extraction Status post cholecystectomy Status post tonsillectomy Physical Exam <MORIAH GUTIERREZ MD - Last Filed: 06/10/22 18:26> Physical Exam Appearance: Reports No pain distress Ill-appearing: None Pain Distress: None Eyes: Reports LANCE, EOMI and Conjunctiva clear ENT: Reports Oropharynx normal Neck: Supple Respiratory: Reports Airway patent, Breath sounds clear and Breath sounds equal Cardiovascular: Reports Irregular rhythm and Tachycardia GI/: Reports Soft and Nontender Musculoskeletal: Reports Other (brace on left lower leg, sen and pulses intact) Skin: Reports Warm and Dry Neurological: Reports Alert and Oriented Psychiatric: Reports Affect appropriate Interpretation <MORIAH GUTIERREZ MD - Last Filed: 06/10/22 18:26> Radiology Interpretation Radiology Interpretation By: Radiologist Exam Interpreted: CXR Xray Comments: bibasilar atelec/opacity/effusion EKG Interpretation Interpretation: atrial fibrillation 143, lvh, lateral t abnormal, no stemi <NICK WHELAN MD - Last Filed: 06/10/22 21:26> Critical Care Note Total Critical Care Time (mins): 60 Course <MORIAH GUTIERREZ MD - Last Filed: 06/10/22 18:26> Course Hematology/Chemistry: 06/10/22 10:23 06/10/22 10:42 Orders, Labs, Meds: Lab Review 06/10/22 06/10/22 06/10/22 10:23 10:23 10:23 WBC 6.01 RBC 4.32 L Hgb 12.7 L Hct 38.5 L MCV 89.1 MCH 29.4 MCHC 33.0 RDW Coeff of Mariama 14.4 Plt Count 245 Immature Gran % (Auto) 0.5 Neut % (Auto) 59.6 Lymph % (Auto) 31.8 Turner % (Auto) 6.8 Eos % (Auto) 1.0 Baso % (Auto) 0.3 Neut # (Auto) 3.6 Lymph # (Auto) 1.9 Turner # (Auto) 0.4 Eos # (Auto) 0.1 Baso # (Auto) 0.0 Immature Gran # (Auto) 0.0 Sodium Potassium Chloride Carbon Dioxide Anion Gap BUN Creatinine Estimated GFR (MDRD) BUN/Creatinine Ratio Glucose Lactic Acid Calcium Total Bilirubin AST ALT Alkaline Phosphatase Troponin I NT-Pro-B Natriuret Pep Total Protein Albumin Globulin Albumin/Globulin Ratio Urine Color Urine Clarity Urine pH Ur Specific [place] Urine Protein Urine Glucose (UA) Urine Ketones Urine Blood Urine Nitrite Urine Bilirubin Urine Urobilinogen Ur Leukocyte Esterase Urine Microscopic RBC Urine Microscopic WBC Ur Squamous Epith Cells Urine Bacteria Urine Mucus Digoxin < 0.40 L Urine Opiates Screen Ur Oxycodone Screen Urine Methadone Screen Ur Propoxyphene Screen Ur Barbiturates Screen U Tricyclic Antidepress Ur Phencyclidine Scrn Ur Amphetamine Screen U Methamphetamines Scrn U Benzodiazepines Scrn Urine Cocaine Screen U Cannabinoids Screen Plasma/Serum Alcohol SARS CoV-2 RNA Rapid TRISTEN Negative 06/10/22 06/10/22 06/10/22 10:42 10:42 13:35 WBC RBC Hgb Hct MCV MCH MCHC RDW Coeff of Mariama Plt Count Immature Gran % (Auto) Neut % (Auto) Lymph % (Auto) Turner % (Auto) Eos % (Auto) Baso % (Auto) Neut # (Auto) Lymph # (Auto) Turner # (Auto) Eos # (Auto) Baso # (Auto) Immature Gran # (Auto) Sodium 139.6 Potassium 4.23 Chloride 109.7 H Carbon Dioxide 20.7 L Anion Gap 13.43 BUN 28.3 H Creatinine 1.72 H Estimated GFR (MDRD) 49.00 BUN/Creatinine Ratio 16.45 Glucose 171.2 H Lactic Acid 2.87 H Calcium 8.16 L Total Bilirubin 0.50 AST 41.2 ALT 29.6 Alkaline Phosphatase 104.5 Troponin I 0.043 NT-Pro-B Natriuret Pep 4560.000 H Total Protein 6.31 Albumin 3.08 L Globulin 3.23 Albumin/Globulin Ratio 0.95 Urine Color Yellow Urine Clarity Clear Urine pH 5.0 Ur Specific [place] 1.025 Urine Protein 1+ H Urine Glucose (UA) 1+ H Urine Ketones Negative Urine Blood Trace-intact H Urine Nitrite Negative Urine Bilirubin Negative Urine Urobilinogen 1.0 H Ur Leukocyte Esterase Negative Urine Microscopic RBC 0-2 Urine Microscopic WBC 0-2 Ur Squamous Epith Cells Not present Urine Bacteria 2+ Urine Mucus 2+ Digoxin Urine Opiates Screen Ur Oxycodone Screen Urine Methadone Screen Ur Propoxyphene Screen Ur Barbiturates Screen U Tricyclic Antidepress Ur Phencyclidine Scrn Ur Amphetamine Screen U Methamphetamines Scrn U Benzodiazepines Scrn Urine Cocaine Screen U Cannabinoids Screen Plasma/Serum Alcohol < 10.0 SARS CoV-2 RNA Rapid TRISTEN 06/10/22 06/10/22 13:35 18:41 WBC RBC Hgb Hct MCV MCH MCHC RDW Coeff of Mariama Plt Count Immature Gran % (Auto) Neut % (Auto) Lymph % (Auto) Turner % (Auto) Eos % (Auto) Baso % (Auto) Neut # (Auto) Lymph # (Auto) Turner # (Auto) Eos # (Auto) Baso # (Auto) Immature Gran # (Auto) Sodium Potassium Chloride Carbon Dioxide Anion Gap BUN Creatinine Estimated GFR (MDRD) BUN/Creatinine Ratio Glucose Lactic Acid Calcium Total Bilirubin AST ALT Alkaline Phosphatase Troponin I 0.035 NT-Pro-B Natriuret Pep Total Protein Albumin Globulin Albumin/Globulin Ratio Urine Color Urine Clarity Urine pH Ur Specific [place] Urine Protein Urine Glucose (UA) Urine Ketones Urine Blood Urine Nitrite Urine Bilirubin Urine Urobilinogen Ur Leukocyte Esterase Urine Microscopic RBC Urine Microscopic WBC Ur Squamous Epith Cells Urine Bacteria Urine Mucus Digoxin Urine Opiates Screen Negative Ur Oxycodone Screen Negative Urine Methadone Screen Negative Ur Propoxyphene Screen Negative Ur Barbiturates Screen Negative U Tricyclic Antidepress Negative Ur Phencyclidine Scrn Negative Ur Amphetamine Screen Negative U Methamphetamines Scrn Negative U Benzodiazepines Scrn Negative Urine Cocaine Screen Positive H U Cannabinoids Screen Negative Plasma/Serum Alcohol SARS CoV-2 RNA Rapid TRISTEN Orders Category Date Time Status EKG-(ED ONLY) Stat CARDIO 06/10/22 10:24 Completed BLOOD ALCOHOL Stat LAB 07/12/22 10:42 Completed CBC W/ AUTO DIFF Stat LAB 06/10/22 10:23 Completed CMP [COMPREHENSIVE METABOLIC PANEL] Stat LAB 06/10/22 10:42 Completed DIGOXIN Stat LAB 06/10/22 10:23 Completed DRUG SCREEN, URINE, RAPID Stat LAB 06/10/22 13:35 Completed LACTIC ACID Stat LAB 06/10/22 10:42 Completed NT-PROBNP Stat LAB 06/10/22 10:42 Completed SARS COV-2 RNA RAPID TRISTEN Stat LAB 06/10/22 10:23 Completed TROPONIN I Stat LAB 06/10/22 10:42 Completed TROPONIN I Stat LAB 06/10/22 18:41 Completed URINALYSIS C & S IF INDICATED Stat LAB 06/10/22 13:35 Completed URINE CULTURE Stat LAB 06/10/22 13:35 Received Diltiazem HCl [Cardizem] 125 mg MEDS 06/10/22 11:00 Discontinued 0.9 % Sodium Chloride [Sodium Chloride 100Ml] 100 ml IV TITRATION Sodium Chloride 0.9% [Sodium Chloride] 1,000 ml MEDS 06/10/22 11:05 Discontinued IV BOLUS CHEST, 1V AP ONLY Stat RADS 06/10/22 10:24 Completed Medications Generic Name Dose Route Start Last Admin Trade Name Freq PRN Reason Stop Dose Admin Acetaminophen 650 mg 06/10/22 20:48 Acetaminophen 325 Mg Tablet PO Q4H PRN Fever and Mild Pain Amiodarone HCl 200 mg 06/11/22 09:00 Amiodarone Hcl 200 Mg Tablet PO DAILY [facility] Apixaban 5 mg 06/10/22 21:00 Apixaban 5 Mg Tab PO BID [facility] Aspirin 81 mg 06/10/22 21:00 Aspirin 81 Mg Tablet.Dr PO DAILY [facility] Carvedilol 12.5 mg 06/10/22 21:00 Carvedilol 6.25 Mg Tablet PO BIDWM [facility] Digoxin 125 mcg 06/11/22 09:00 Digoxin 125 Mcg Tablet PO DAILY [facility] Digoxin 125 mcg 06/10/22 23:00 Digoxin Inj 500 Mcg/2 Ml Amp IVP 06/10/22 23:01 ONCE ONE Diltiazem HCl 125 mg/ Sodium 125 mls @ 20 mls/hr 06/10/22 21:00 Chloride IV TITRATION [facility] Protocol 20 MG/HR Losartan Potassium 100 mg 06/11/22 09:00 Losartan Potassium 100 Mg Tablet PO DAILY [facility] Ondansetron HCl 4 mg 06/10/22 20:48 Ondansetron Hcl/Pf 4 Mg/2 Ml Sdv IVP Q6H PRN Nausea / Vomiting Rosuvastatin Calcium 10 mg 06/11/22 21:00 Rosuvastatin Calcium 10 Mg Tablet PO BEDTIME ODILON Discontinued Medications Generic Name Dose Route Start Last Admin Trade Name Freq PRN Reason Stop Dose Admin Apixaban 5 mg 06/10/22 21:00 Apixaban 5 Mg Tab PO 06/10/22 21:01 ONCE ONE Carvedilol 12.5 mg 06/10/22 21:03 Carvedilol 12.5 Mg Tablet PO 06/10/22 21:04 ONCE ONE Digoxin 250 mcg 06/10/22 21:00 Digoxin Inj 500 Mcg/2 Ml Amp IVP 06/10/22 21:01 ONCE ONE Diltiazem HCl 125 mg/ Sodium 125 mls @ 5 mls/hr 06/10/22 11:00 06/10/22 18:45 Chloride IV 20 mg/hr TITRATION ODILON 20 mls/hr Administration Protocol 5 MG/HR Sodium Chloride 1,000 mls @ 1,000 mls/hr 06/10/22 11:05 06/10/22 11:17 Sodium Chloride IV 06/10/22 12:04 1,000 mls/hr BOLUS STA Administration Rosuvastatin Calcium 10 mg 06/10/22 21:00 Rosuvastatin Calcium 10 Mg Tablet PO DAILY [facility] Vital Signs: Temp Pulse Resp BP Pulse Ox 06/10/22 10:22 97.7 F 136 H 20 166/123 H 98 <NICK WHELAN MD - Last Filed: 06/10/22 21:26> Course Orders, Labs, Meds: Lab Review 06/10/22 06/10/22 06/10/22 10:23 10:23 10:23 WBC 6.01 RBC 4.32 L Hgb 12.7 L Hct 38.5 L MCV 89.1 MCH 29.4 MCHC 33.0 RDW Coeff of Mariama 14.4 Plt Count 245 Immature Gran % (Auto) 0.5 Neut % (Auto) 59.6 Lymph % (Auto) 31.8 Turner % (Auto) 6.8 Eos % (Auto) 1.0 Baso % (Auto) 0.3 Neut # (Auto) 3.6 Lymph # (Auto) 1.9 Turner # (Auto) 0.4 Eos # (Auto) 0.1 Baso # (Auto) 0.0 Immature Gran # (Auto) 0.0 Sodium Potassium Chloride Carbon Dioxide Anion Gap BUN Creatinine Estimated GFR (MDRD) BUN/Creatinine Ratio Glucose Lactic Acid Calcium Total Bilirubin AST ALT Alkaline Phosphatase Troponin I NT-Pro-B Natriuret Pep Total Protein Albumin Globulin Albumin/Globulin Ratio Urine Color Urine Clarity Urine pH Ur Specific [place] Urine Protein Urine Glucose (UA) Urine Ketones Urine Blood Urine Nitrite Urine Bilirubin Urine Urobilinogen Ur Leukocyte Esterase Urine Microscopic RBC Urine Microscopic WBC Ur Squamous Epith Cells Urine Bacteria Urine Mucus Digoxin < 0.40 L Urine Opiates Screen Ur Oxycodone Screen Urine Methadone Screen Ur Propoxyphene Screen Ur Barbiturates Screen U Tricyclic Antidepress Ur Phencyclidine Scrn Ur Amphetamine Screen U Methamphetamines Scrn U Benzodiazepines Scrn Urine Cocaine Screen U Cannabinoids Screen Plasma/Serum Alcohol SARS CoV-2 RNA Rapid TRISTEN Negative 06/10/22 06/10/22 06/10/22 10:42 10:42 13:35 WBC RBC Hgb Hct MCV MCH MCHC RDW Coeff of Mariama Plt Count Immature Gran % (Auto) Neut % (Auto) Lymph % (Auto) Turner % (Auto) Eos % (Auto) Baso % (Auto) Neut # (Auto) Lymph # (Auto) Turner # (Auto) Eos # (Auto) Baso # (Auto) Immature Gran # (Auto) Sodium 139.6 Potassium 4.23 Chloride 109.7 H Carbon Dioxide 20.7 L Anion Gap 13.43 BUN 28.3 H Creatinine 1.72 H Estimated GFR (MDRD) 49.00 BUN/Creatinine Ratio 16.45 Glucose 171.2 H Lactic Acid 2.87 H Calcium 8.16 L Total Bilirubin 0.50 AST 41.2 ALT 29.6 Alkaline Phosphatase 104.5 Troponin I 0.043 NT-Pro-B Natriuret Pep 4560.000 H Total Protein 6.31 Albumin 3.08 L Globulin 3.23 Albumin/Globulin Ratio 0.95 Urine Color Yellow Urine Clarity Clear Urine pH 5.0 Ur Specific [place] 1.025 Urine Protein 1+ H Urine Glucose (UA) 1+ H Urine Ketones Negative Urine Blood Trace-intact H Urine Nitrite Negative Urine Bilirubin Negative Urine Urobilinogen 1.0 H Ur Leukocyte Esterase Negative Urine Microscopic RBC 0-2 Urine Microscopic WBC 0-2 Ur Squamous Epith Cells Not present Urine Bacteria 2+ Urine Mucus 2+ Digoxin Urine Opiates Screen Ur Oxycodone Screen Urine Methadone Screen Ur Propoxyphene Screen Ur Barbiturates Screen U Tricyclic Antidepress Ur Phencyclidine Scrn Ur Amphetamine Screen U Methamphetamines Scrn U Benzodiazepines Scrn Urine Cocaine Screen U Cannabinoids Screen Plasma/Serum Alcohol < 10.0 SARS CoV-2 RNA Rapid TRISTEN 06/10/22 06/10/22 13:35 18:41 WBC RBC Hgb Hct MCV MCH MCHC RDW Coeff of Mariama Plt Count Immature Gran % (Auto) Neut % (Auto) Lymph % (Auto) Turner % (Auto) Eos % (Auto) Baso % (Auto) Neut # (Auto) Lymph # (Auto) Turner # (Auto) Eos # (Auto) Baso # (Auto) Immature Gran # (Auto) Sodium Potassium Chloride Carbon Dioxide Anion Gap BUN Creatinine Estimated GFR (MDRD) BUN/Creatinine Ratio Glucose Lactic Acid Calcium Total Bilirubin AST ALT Alkaline Phosphatase Troponin I 0.035 NT-Pro-B Natriuret Pep Total Protein Albumin Globulin Albumin/Globulin Ratio Urine Color Urine Clarity Urine pH Ur Specific [place] Urine Protein Urine Glucose (UA) Urine Ketones Urine Blood Urine Nitrite Urine Bilirubin Urine Urobilinogen Ur Leukocyte Esterase Urine Microscopic RBC Urine Microscopic WBC Ur Squamous Epith Cells Urine Bacteria Urine Mucus Digoxin Urine Opiates Screen Negative Ur Oxycodone Screen Negative Urine Methadone Screen Negative Ur Propoxyphene Screen Negative Ur Barbiturates Screen Negative U Tricyclic Antidepress Negative Ur Phencyclidine Scrn Negative Ur Amphetamine Screen Negative U Methamphetamines Scrn Negative U Benzodiazepines Scrn Negative Urine Cocaine Screen Positive H U Cannabinoids Screen Negative Plasma/Serum Alcohol SARS CoV-2 RNA Rapid TRISTEN Orders Category Date Time Status EKG-(ED ONLY) Stat CARDIO 06/10/22 10:24 Completed BLOOD ALCOHOL Stat LAB 06/10/22 10:42 Completed CBC W/ AUTO DIFF Stat LAB 06/10/22 10:23 Completed CMP [COMPREHENSIVE METABOLIC PANEL] Stat LAB 06/10/22 10:42 Completed DIGOXIN Stat LAB 06/10/22 10:23 Completed DRUG SCREEN, URINE, RAPID Stat LAB 06/10/22 13:35 Completed LACTIC ACID Stat LAB 06/10/22 10:42 Completed NT-PROBNP Stat LAB 06/10/22 10:42 Completed SARS COV-2 RNA RAPID TRISTEN Stat LAB 06/10/22 10:23 Completed TROPONIN I Stat LAB 06/10/22 10:42 Completed TROPONIN I Stat LAB 06/10/22 18:41 Completed URINALYSIS C & S IF INDICATED Stat LAB 06/10/22 13:35 Completed URINE CULTURE Stat LAB 06/10/22 13:35 Received Diltiazem HCl [Cardizem] 125 mg MEDS 06/10/22 11:00 Discontinued 0.9 % Sodium Chloride [Sodium Chloride 100Ml] 100 ml IV TITRATION Sodium Chloride 0.9% [Sodium Chloride] 1,000 ml MEDS 06/10/22 11:05 Discontinued IV BOLUS CHEST, 1V AP ONLY Stat RADS 06/10/22 10:24 Completed Medications Generic Name Dose Route Start Last Admin Trade Name Freq PRN Reason Stop Dose Admin Acetaminophen 650 mg 06/10/22 20:48 Acetaminophen 325 Mg Tablet PO Q4H PRN Fever and Mild Pain Amiodarone HCl 200 mg 06/11/22 09:00 Amiodarone Hcl 200 Mg Tablet PO DAILY [facility] Apixaban 5 mg 06/10/22 21:00 Apixaban 5 Mg Tab PO BID [facility] Aspirin 81 mg 06/10/22 21:00 Aspirin 81 Mg Tablet.Dr PO DAILY [facility] Carvedilol 12.5 mg 06/10/22 21:00 Carvedilol 6.25 Mg Tablet PO BIDWM [facility] Digoxin 125 mcg 06/11/22 09:00 Digoxin 125 Mcg Tablet PO DAILY [facility] Digoxin 125 mcg 06/10/22 23:00 Digoxin Inj 500 Mcg/2 Ml Amp IVP 06/10/22 23:01 ONCE ONE Diltiazem HCl 125 mg/ Sodium 125 mls @ 20 mls/hr 06/10/22 21:00 Chloride IV TITRATION [facility] Protocol 20 MG/HR Losartan Potassium 100 mg 06/11/22 09:00 Losartan Potassium 100 Mg Tablet PO DAILY [facility] Ondansetron HCl 4 mg 06/10/22 20:48 Ondansetron Hcl/Pf 4 Mg/2 Ml Sdv IVP Q6H PRN Nausea / Vomiting Rosuvastatin Calcium 10 mg 06/11/22 21:00 Rosuvastatin Calcium 10 Mg Tablet PO BEDTIME [facility] Discontinued Medications Generic Name Dose Route Start Last Admin Trade Name Freq PRN Reason Stop Dose Admin Apixaban 5 mg 06/10/22 21:00 Apixaban 5 Mg Tab PO 06/10/22 21:01 ONCE ONE Carvedilol 12.5 mg 06/10/22 21:03 Carvedilol 12.5 Mg Tablet PO 06/10/22 21:04 ONCE ONE Digoxin 250 mcg 06/10/22 21:00 Digoxin Inj 500 Mcg/2 Ml Amp IVP 06/10/22 21:01 ONCE ONE Diltiazem HCl 125 mg/ Sodium 125 mls @ 5 mls/hr 06/10/22 11:00 06/10/22 18:45 Chloride IV 20 mg/hr TITRATION ODILON 20 mls/hr Administration Protocol 5 MG/HR Sodium Chloride 1,000 mls @ 1,000 mls/hr 06/10/22 11:05 06/10/22 11:17 Sodium Chloride IV 06/10/22 12:04 1,000 mls/hr BOLUS STA Administration Rosuvastatin Calcium 10 mg 06/10/22 21:00 Rosuvastatin Calcium 10 Mg Tablet PO DAILY ODILON Vital Signs: Temp Pulse Resp BP Pulse Ox 06/10/22 10:22 97.7 F 136 H 20 166/123 H 98 Discharge Plan Discharge Patient Disposition: ADMITTED INPATIENT Discharge Problem: Atrial fibrillation with rapid ventricular response, Hypertension, CHF (congestive heart failure), Chronic renal failure, Cocaine abuse Did you review [place] [employer]?: Not Applicable ED Provider: MORIAH GUTIERREZ Condition: Stable <MORIAH GUTIERREZ MD - Last Filed: 06/10/22 18:26> Physician Progress Note: [] care to Dr Whelan at 19:00
[2022-06-10 10:49] LABS: BASOPHILS % (AUTO) 0.3 % (0.0-3.0); EOSINOPHILS # (AUTO) 0.1 K/ul (0.0-0.7); HEMATOCRIT 38.5 % (42.0-52.0); HEMOGLOBIN 12.7 g/dl (14.0-18.0); IMMATURE GRANULOCYTE % (AUTO) 0.5 % (0.0-5.0); LYMPHOCYTES # (AUTO) 1.9 K/uL (0.60-3.4); LYMPHOCYTES % (AUTO) 31.8 (10.0-50.0); MEAN CORPUSCULAR HEMOGLOBIN 29.4 pg (27.0-31.0); MEAN CORPUSCULAR VOLUME 89.1 fl (80.0-94.0); MONOCYTES # (AUTO) 0.4 K/uL (0.4-2.0); MONOCYTES % (AUTO) 6.8 (0-10); NEUTROPHILS # (AUTO) 3.6 K/ul (2.0-6.9); NEUTROPHILS % (AUTO) 59.6 % (42.2-75.2); PLATELET COUNT 245 10^3/uL (140-440); RDW COEFFICIENT OF VARIATION 14.4 % (11.6-14.8); RED BLOOD COUNT 4.32 10^6/ul (4.70-6.10); WHITE BLOOD COUNT 6.01 K/ul (4.2-10.2)
[2022-06-10 11:00] LABS: ALANINE AMINOTRANSFERASE 29.6 U/L (0-50); ALBUMIN 3.08 g/dL (3.5-5.0); ALKALINE PHOSPHATASE 104.5 U/L (56-119); ASPARTATE AMINO TRANSFERASE 41.2 U/L (17-59); BLOOD UREA NITROGEN 28.3 mg/dL (9-20); CALCIUM 8.16 mg/dL (8.4-10.2); CARBON DIOXIDE 20.7 mmol/L (22-30.0); CHLORIDE 109.7 mmol/L (98-107); CREATININE 1.72 mg/dL (0.60-1.10); GLUCOSE 171.2 mg/dL (74-106); POTASSIUM 4.23 mmol/L (3.5-5.1); SODIUM 139.6 mmol/L (134.5-145); TOTAL PROTEIN 6.31 g/dL (6.3-8.2)
[2022-06-10 11:01] LABS: BLOOD ALCOHOL < 10.0 mg/dL (0.0-50.0)
[2022-06-10] MEDS ORDERED: SODIUM CHLORIDE 1,000 ML IV STA (11:05)
[2022-06-10 11:12] LABS: TROPONIN I 0.043 ng/ml (0.0000-0.120)
[2022-06-10] MEDS: CARDIZEM 125 MG in SODIUM CHLORIDE 100ML 100 ML IV SCH ×3 (11:17→22:23)
--- NOTE | 2022-06-10 11:38 | DI ---
EXAM: CHEST FRONTAL VIEW HISTORY: Cough COMPARISON: 08/30/2021 FINDINGS: Mild cardiomegaly is again suggested. Atherosclerotic disease is noted. Chronic lung leonard nges. There is at least mild density in the left base, possible minimal same level on the right. No vascular congestion, pleural fluid or pneumothorax. IMPRESSION: Chronic lung changes. There is at least mild density in the left base, possible minimal same level on the right. Consider pneumonia.
[2022-06-10 13:50] LABS: BILIRUBIN,URINE Negative (NEGATIVE); CLARITY,URINE Clear (CLEAR); COLOR,URINE Yellow (YELLOW); GLUCOSE, URINE (UA) 1+ (NEGATIVE); KETONES,URINE Negative (NEGATIVE); LEUKOCYTE ESTERASE ,URINE Negative (NEGATIVE); NITRITE,URINE Negative (NEGATIVE); PROTEIN,URINE 1+ (NEGATIVE); URINE, BLOOD Trace-intact (NEGATIVE)
[2022-06-10 13:54] LABS: SQUAMOUS EPITHELIAL CELL,UR NOT PRESENT (0-5)
[2022-06-10 14:03] LABS: AMPHETAMINE SCREEN,URINE NEGATIVE (NEGATIVE); BARBITURATE SCREEN,URINE NEGATIVE (NEGATIVE); BENZODIAZEPINES SCREEN,URINE NEGATIVE (NEGATIVE); CANNABINOID SCREEN,URINE NEGATIVE (NEGATIVE); COCAIN SCREEN,URINE POSITIVE (NEGATIVE); METHADONE URINE SCREEN NEGATIVE (NEGATIVE); METHAMPHETAMINES SCREEN,URINE NEGATIVE (NEGATIVE); OPIATE SCREEN,URINE NEGATIVE (NEGATIVE); OXYCODONE URINE SCREEN NEGATIVE (NEGATIVE); PHENCYCLIDINE SCREEN,URINE NEGATIVE (NEGATIVE); PROPOXYPHENE URINE SCREEN NEGATIVE (NEGATIVE); TRICYCLIC ANTIDEPRESSANTS URIN NEGATIVE (NEGATIVE)
[2022-06-10 14:08] LABS: BACTERIA,URINE 2+ (NOT PRESENT); MUCUS,URINE 2+ (NOT PRESENT); URINE RBC, MICROSCOPIC 0-2 (0-2); URINE WBC, MICROSCOPIC 0-2 (0-2)
[2022-06-10] MEDS ORDERED: TYLENOL PO PRN (20:48)
[2022-06-10] MEDS ORDERED: ZOFRAN 4 MG/2 ML IVP PRN (20:48)
[2022-06-10] MEDS ORDERED: ELIQUIS PO ONE (21:00)
[2022-06-10] MEDS ORDERED: LANOXIN IVP ONE ×2 (21:00→23:00)
[2022-06-10] MEDS ORDERED: CRESTOR PO SCH (21:00)
[2022-06-10] MEDS ORDERED: ASPIRIN EC PO SCH (21:00)
[2022-06-10] MEDS ORDERED: COREG PO SCH (21:00)
[2022-06-10] MEDS ORDERED: COREG PO ONE (21:03)
[2022-06-10 21:43] VITALS: BMI 21.4
[2022-06-10] MEDS: ELIQUIS PO SCH (22:03)
[2022-06-11 03:36] LABS: TROPONIN I 0.032 ng/ml (0.0000-0.120)
[2022-06-11 03:54] LABS: CREATINE KINASE MB 1.69 ng/ml (0.0-2.38)
[2022-06-11 05:44] LABS: BASOPHILS % (AUTO) 0.3 % (0.0-3.0); EOSINOPHILS # (AUTO) 0.1 K/ul (0.0-0.7); EOSINOPHILS % (AUTO) 1.2 % (0.0-7.0); HEMATOCRIT 37.7 % (42.0-52.0); HEMOGLOBIN 12.2 g/dl (14.0-18.0); IMMATURE GRANULOCYTE % (AUTO) 0.3 % (0.0-5.0); LYMPHOCYTES # (AUTO) 1.7 K/uL (0.60-3.4); LYMPHOCYTES % (AUTO) 25.3 (10.0-50.0); MEAN CORPUSCULAR HEMOGLOBIN 29.1 pg (27.0-31.0); MEAN CORPUSCULAR HGB CONC 32.4 (31.8-35.4); MONOCYTES # (AUTO) 0.4 K/uL (0.4-2.0); MONOCYTES % (AUTO) 6.4 (0-10); NEUTROPHILS # (AUTO) 4.5 K/ul (2.0-6.9); NEUTROPHILS % (AUTO) 66.5 % (42.2-75.2); PLATELET COUNT 235 10^3/uL (140-440); RDW COEFFICIENT OF VARIATION 14.6 % (11.6-14.8); RED BLOOD COUNT 4.19 10^6/ul (4.70-6.10); WHITE BLOOD COUNT 6.73 K/ul (4.2-10.2)
[2022-06-11 05:52] LABS: BLOOD UREA NITROGEN 24.1 mg/dL (9-20); CALCIUM 7.72 mg/dL (8.4-10.2); CARBON DIOXIDE 16.8 mmol/L (22-30.0); CREATININE 1.47 mg/dL (0.60-1.10); POTASSIUM 4.01 mmol/L (3.5-5.1); SODIUM 137.6 mmol/L (134.5-145)
[2022-06-11] MEDS: COZAAR PO SCH (08:13)
[2022-06-11] MEDS: LANOXIN PO SCH (08:13)
[2022-06-11] MEDS: ASPIRIN EC PO SCH (08:14)
[2022-06-11] MEDS: CORDARONE PO SCH (08:14)
[2022-06-11] MEDS: CARDIZEM 125 MG in SODIUM CHLORIDE 100ML 100 ML IV SCH (08:16)
[2022-06-11] MEDS: ELIQUIS PO SCH ×2 (08:16→20:24)
[2022-06-11] MEDS ORDERED: COREG PO SCH (08:30)
[2022-06-11] MEDS ORDERED: COREG PO ONE (10:09)
[2022-06-11 11:25] LABS: CREATINE KINASE 93.5 U/L (55-170)
[2022-06-11 11:38] LABS: TROPONIN I 0.033 ng/ml (0.0000-0.120)
[2022-06-11] MEDS ORDERED: LANOXIN IVP ONE (14:55)
[2022-06-11] MEDS ORDERED: CARDIZEM PO ONE (14:57)
[2022-06-11] MEDS ORDERED: LASIX IVP ONE (14:58)
[2022-06-11] MEDS: COREG PO SCH (17:11)
[2022-06-11] MEDS ORDERED: THIAMINE IM ONE (19:40)
[2022-06-11] MEDS ORDERED: DECADRON IM ONE (19:40)
[2022-06-11] MEDS ORDERED: CRESTOR PO SCH (21:00)
[2022-06-12] MEDS: CARDIZEM 125 MG in SODIUM CHLORIDE 100ML 100 ML IV SCH (01:51)
[2022-06-12 05:35] LABS: HEMATOCRIT 36.5 % (42.0-52.0); HEMOGLOBIN 11.8 g/dl (14.0-18.0); IMMATURE GRANULOCYTE % (AUTO) 0.4 % (0.0-5.0); LYMPHOCYTES # (AUTO) 0.4 K/uL (0.60-3.4); MEAN CORPUSCULAR HEMOGLOBIN 28.7 pg (27.0-31.0); MEAN CORPUSCULAR HGB CONC 32.3 (31.8-35.4); MEAN CORPUSCULAR VOLUME 88.8 fl (80.0-94.0); MONOCYTES # (AUTO) 0.1 K/uL (0.4-2.0); MONOCYTES % (AUTO) 1.7 (0-10); NEUTROPHILS % (AUTO) 90.9 % (42.2-75.2); PLATELET COUNT 247 10^3/uL (140-440); RDW COEFFICIENT OF VARIATION 14.4 % (11.6-14.8); RED BLOOD COUNT 4.11 10^6/ul (4.70-6.10); WHITE BLOOD COUNT 5.44 K/ul (4.2-10.2)
[2022-06-12 05:55] LABS: BLOOD UREA NITROGEN 24.6 mg/dL (9-20); CALCIUM 8.35 mg/dL (8.4-10.2); CARBON DIOXIDE 19.5 mmol/L (22-30.0); CHLORIDE 111.5 mmol/L (98-107); CREATININE 1.6 mg/dL (0.60-1.10); GLUCOSE 190.4 mg/dL (74-106); POTASSIUM 4.35 mmol/L (3.5-5.1); SODIUM 138.2 mmol/L (134.5-145)
[2022-06-12] MEDS ORDERED: LASIX TAB PO SCH (06:30)
[2022-06-12] MEDS ORDERED: LASIX IVP SCH (06:30)
[2022-06-12] MEDS ORDERED: SODIUM CHLORIDE 500 ML IV SCH (08:30)
[2022-06-12] MEDS ORDERED: SODIUM CHLORIDE 1,000 ML IV SCH ×2 (08:30→09:30)
--- NOTE | 2022-06-12 08:58 | PCM.PROG ---
Attending Provider: ATTENDING PROVIDER: Dr. MARI HIGGINBOTHAM MD This patient is seen with Dahlia Lai, Nurse Practitioner. DATE OF SERVICE: 06/12/22 SUBJECTIVE: This 66 year old AA/BLACK M was hospitalized 06/10/22. The patient is agitated this morning threatening to leave AMA. Long history of noncompliance. He has not seen installer in [place] in a year and a half. Explained risks given multiple medical conditions. The patient is very adamant about leaving. PFT ordered. REVIEW OF SYSTEMS: CONSTITUTIONAL: No night sweats. No fatigue, malaise, lethargy. No fever or chills. HEENT: Eyes: No visual changes. No eye pain. No eye discharge. ENT: No runny nose. No epistaxis. No sinus pain. No odynophagia. No congestion. RESPIRATORY: No cough, no congestion. No hemoptysis. Shortness of breath. CARDIOVASCULAR: No angina symptoms. No CHF symptoms. No atypical chest pain for CAD. No palpitations. No orthopnea. Tachycardia. GASTROINTESTINAL: No abdominal pain. No nausea or vomiting. No diarrhea or constipation. No hematemesis. No hematochezia. GENITOURINARY: No urgency. No frequency. No dysuria. No hematuria. No obstructive symptoms. No discharge. No pain. No significant abnormal bleeding. MUSCULOSKELETAL: No musculoskeletal pain; no joint swelling. NEUROLOGICAL: Awake, alert, oriented to time, place and person. Agitated. No headache. No neck pain. No syncope. No seizures. No dizziness. PSYCHIATRIC: Not anxious. No depression. No suicidal thoughts. No homicidal thou ghts. SKIN: No rash. No lesions. No wounds. ENDOCRINE: No unexplained weight loss. No weight gain. HEMATOLOGIC/LYMPHATIC: No anemia. No purpura. No petechiae. No prolonged or excessive bleeding. No palpable lymph nodes. PHYSICAL EXAMINATION: GENERAL: The patient is awake, alert and oriented, sitting in bed in no distress. VITAL SIGNS: Temperature 97.2 F, Pulse 104, Respiratory Rate 20, BP 144/102, Pulse Ox 100% HEENT: Head normocephalic, atraumatic. Eyes: Extraocular muscles are intact. Pupils are equal, round and reactive to light and accommodation. Ears: No lesions. Nose appeared normal. Throat: No exudate or erythema. NECK: Supple. No JVD, no carotid bruit. No lymphadenopathy or thyromegaly. LUNGS: Diminished breath sounds. Irregular heart rate. Clear to auscultation. Percussion note normal. Chest symmetrical. HEART: S1, S2, no S3. No murmurs. No cyanosis or clubbing. No ascites. Pulses: Dorsalis pedis and posterior tibial pulses +1 to +2 both sides. ABDOMEN: Soft. Non-tender. Bowel sounds active. No CVA tenderness. No mass felt. EXTREMITIES: No edema. Full range of motion of all extremities, equal. NEUROLOGIC: No focal deficit. Cranial nerves II through XII are grossly intact. No headache. No double vision. SKIN: Not dry. Intact. Turgor-normal. LYMPHATIC: No palpable lymph nodes/no lymphedema. MUSCULOSKELETAL: Normal joints with no swelling. Muscle tone is normal. LAB REVIEW: 06/12/22 05:20 06/12/22 05:20 06/12/22 05:20: Digoxin 0.64 L 06/12/22 05:20: NT-Pro-B Natriuret Pep 2090.000 H 06/12/22 05:20: Sodium 138.2, Potassium 4.35, Chloride 111.5 H, Carbon Dioxide 19.5 L, Anion Gap 11.55, BUN 24.6 H, Creatinine 1.60 H, Estimated GFR (MDRD) 53.00, BUN/Creatinine Ratio 15.37, Glucose 190.4 H, Calcium 8.35 L 06/12/22 05:20: WBC 5.44, RBC 4.11 L, Hgb 11.8 L, Hct 36.5 L, MCV 88.8, MCH 28.7, MCHC 32.3, RDW Coeff of Mariama 14.4, Plt Count 247, Immature Gran % (Auto) 0.4, Neut % (Auto) 90.9 H, Lymph % (Auto) 7.0 L, [place] % (Auto) 1.7, Eos % (Auto) 0.0, Baso % (Auto) 0.0, Neut # (Auto) 5.0, Lymph # (Auto) 0.4 L, [place] # (Auto) 0.1 L, Eos # (Auto) 0.0, Baso # (Auto) 0.0, Immature Gran # (Auto) 0.0 06/11/22 11:10: Total Creatine Kinase 93.5, Troponin I 0.033 06/11/22 05:26: TSH 0.256 L 06/11/22 05:26: Free T4 2.12 ASSESSMENT: Please see below. 1. Persistent atrial fibrillation with RVR, improved 2. COPD 3. Hypertension 4. Positive cocaine use 5. Long history of noncompliance with medications, lifestyle and followup. PLAN: 1. Cardizem 0mg PO BID 2. PFT 3. Lipid and A1c 4. The patient is strongly advised to stay at the hospital and importance of medication discussed. Plan and coordination of the patient's care discussed in the presence of [employer] and nurse. SCRIBED BY: Jose BRENNANist scribed while in presence of service performed by Dr. Beltrán/Dahlia Lai APRN on 06/12/22 ([id number])
[2022-06-12] MEDS ORDERED: CARDIZEM PO SCH ×2 (09:00→20:00)
[2022-06-12] MEDS: COREG PO SCH (09:23)
[2022-06-12] MEDS: ASPIRIN EC PO SCH (09:23)
[2022-06-12] MEDS: LANOXIN PO SCH (09:25)
[2022-06-12] MEDS: CORDARONE PO SCH (09:26)
[2022-06-12] MEDS: ELIQUIS PO SCH (09:26)
[2022-06-12] MEDS: COZAAR PO SCH (09:26)
[2022-06-12] MEDS ORDERED: LEVAQUIN 750 MG/150 ML D5W 750 MG/150 ML BAG IV SCH (09:30)
[2022-06-12] MEDS ORDERED: MAXIPIME 2 GM in SODIUM CHLORIDE 100ML 100 ML IV SCH (09:30)
[2022-06-12] MEDS ORDERED: ZITHROMAX PO SCH (10:00)
[2022-06-12 10:10] VITALS: TEMP 97.9
--- NOTE | 2022-06-12 10:47 | PCM.PROG ---
Date Seen by Provider: 06/12/22 Time Seen by Provider: 10:43 Subjective: pt improving bruno, no chest pain, pt still not rate controlled Objective: Vitals: T=97.9 F, P=119, R=18, EG=360/96, SPO2=99 HEENT: []conjunctiva clear Neck: []supple Lungs: [] clear CVS: []tachycardia, irregular Abdomen: []nontender Extremities: []warm and dry Neurological: []alert and oriented x 3 Skin: []no cyanosis Lab/Tests/Diagnostic Imaging: [] await PFT and 2Decho results Plan: start discharge planning for pt to update his medical card, continue cardizem, digoxin, amiodarone care to Dr Duran at 19:00
--- NOTE | 2022-06-12 11:23 | CONS ---
DATE OF CONSULTATION: 06/11/22 REASON FOR CONSULTATION: Atrial fibrillation with rapid ventricular response and uncontrolled hypertension. HISTORY OF PRESENT ILLNESS: 66 year old black male hospitalized on 06/10/22 through the emergency room. The patient came to the emergency room because he was feeling short of breath. In the emergency room the patient was noted to have atrial fibrillation with rapid ventricular response. The rate was 130 per minute and the blood pressure 160-170 and [address] point [address] Duran had called and asked to see the patient in the morning that is 06/11/22. In the meantime the case was discussed with Dr. Duran. Order was given to give the patient Lanoxin 0.375mg over three hours. The patient was already on Cardizem drip. Coreg was started 12.5mg to be given in the emergency room along with BID dose. The patient's creatinine was 1.7 with BUN 30. The patient had stopped taking medications for nearly three months because of insurance. REVIEW OF SYSTEMS: CONSTITUTIONAL: No night sweats. No fatigue, malaise, lethargy. No fever or chills. The patient says that he is feeling better. HEENT: Eyes: No visual changes. No eye pain. No eye discharge. ENT: No sinus drainage. No epistaxis. No sinus pain. No sore throat. No odynophagia. No ear pain. No congestion. RESPIRATORY: Mild cough, no congestion. No hemoptysis. Shortness of breath on exertion. CARDIOVASCULAR: No angina symptoms. No CHF symptoms. No atypical chest pain for CAD. No palpitations. No orthopnea. GASTROINTESTINAL: No abdominal pain. No nausea or vomiting. No diarrhea or constipation. No hematemesis. No hematochezia. Appetite had improved. He had a good breakfast this morning. GENITOURINARY: No urgency. No frequency. No dysuria. No hematuria. No obstructive symptoms. No discharge. No pain. No significant abnormal bleeding. MUSCULOSKELETAL: No musculoskeletal pain. No joint swelling. Left ankle problem with foot drop type symptoms. NEUROLOGICAL: No headache. No neck pain. No syncope. No seizures. No dizziness. PSYCHIATRIC: Not anxious. No depression. No suicidal thoughts. No homicidal thoughts. SKIN: No rash. No lesions. No wounds. ENDOCRINE: No unexplained weight loss. No weight gain. HEMATOLOGIC/LYMPHATIC: No anemia. No purpura. No petechiae. No prolonged or excessive bleeding. No palpable lymph nodes. MEDICATIONS: Aspirin Apixaban Losartan Rosuvastatin Amiodarone Carvedilol Lanoxin ALLERGIES: Lisinopril PAST MEDICAL HISTORY/PAST SURGICAL HISTORY: History of ischemia stroke frontal lobe History of atrial fibrillation followed by at time Dr. Bowens who is a floorworker, Dr. Burk floorworker both of them at [facility], [place]. Followed by [facility] Cardiology Cocaine use Hypertension Dyslipidemia Chronic kidney disease Status post cholecystectomy Status post tonsillectomy SOCIAL/PERSONAL/FAMILY HISTORY: The patient lives by himself. The patient has a brother and a girlfriend. Heavy smoker. Also has history of alcohol abuse but says that he has slowed down lately. Also has used drugs in the past. Able to do all activity of daily living. No history of fall lately. PHYSICAL EXAMINATION: GENERAL: The patient is oriented to time, place and person, no distress. VITAL SIGNS: Temperature 99, pulse 93, respiratory rate 18, blood pressure 164/118, pulse ox 92% on room air. HEENT: Head normocephalic, atraumatic. Eyes: Extraocular muscles are intact. Pupils are equal, round and reactive to light and accommodation. Ears: No lesions. Nose appeared normal. Throat: No exudate or erythema. NECK: Supple. No JVD, no carotid bruit. No lymphadenopathy or thyromegaly. LUNGS: Decreased breath sounds but mild expiratory wheeze noted. Percussion note normal. Chest symmetrical. HEART: S1, S2, no S3. II/ systolic murmur at the apex going to the axilla. Irregular heart rate with rate of 110 at the apex. No cyanosis or clubbing. No ascites. Pulses: Dorsalis pedis and posterior tibial pulses +1 bilaterally. Radial pulses equal bilaterally. ABDOMEN: Soft. Nontender. Bowel sounds active. No CVA tenderness. No mass felt. EXTREMITIES: No edema. Full range of motion of all extremities, equal. NEUROLOGIC: No focal deficit. Cranial nerves II through XII are grossly intact. No headache, no double vision or headache. SKIN: Not dry. Intact. Turgor - normal. LYMPHATIC: No palpable lymph nodes/no lymphedema. MUSCULOSKELETAL: Normal joints with no swelling. Muscle tone is normal. LABS: Hgb 12.2, hct 37, WBC 6,000 normal differential, creatinine 1.4, BUN 24, potassium 4. CKMB negative. Troponin negative. Pro BNP 4,560. Glucose 170. GFR 58cc per minute. Chest x-ray atelectasis possibility of pneumonitis, no CHF. EKG atrial fibrillation with rapid ventricular response, no acute changes. Echocardiogram was done this morning which showed LVH with enlarged LA cavity, Normal LV contractility, No effusion, Enlarged RV cavity borderline. No LV cavity size. ASSESSMENT: 1. Atrial fibrillation with rapid ventricular response 2. Severe hypertension 3. Chronic kidney disease 4. History of dyslipdiemia 5. History of alcohol abuse/drug abuse 6. Hyperglycemia versus diabetes mellitus 7. Noncompliance of all aspects of medical care RECOMMENDATIONS: 1. Extra dose of 12.5mg Coreg 2. Increase the Coreg dose to 25mg twice a day as the patient's LV contractility is normal and has LVH with normal LV size 3. T4 and TSH 4. Continue Cardizem drip. Increase to 8mg per hour 5. Extra dose of Lanoxin 0.125mg 6. PRO BNP in the morning 7. Lanoxin level in the morning 8. Lasix IV 20mg given 9. Cardizem PO later on 60mg was given afternoon ADDENDUM: The patient approximately 8pm was reported to have heart rate of 70 per minute and blood pressure 109/79. At that point the Cardizem drip was reduced to 5mg, should discontinue it with systolic blood pressure over 120. Cardizem 60mg dose should be held if the blood pressure is less than 120 or the pulse is less than 80. Case discussed withe nursing staff. The patient is also going to be given 100mg Thiamine IM and 1/2cc Decadron. The patient has been thoroughly explained about for continuation of medication. The patient's CHADS VASC SCORE considering the patient history of stroke approximately 4. Education about atrial fibrillation carried out. Apixaban side effects discussed like GI bleed and intracranial bleed and need for not taking any nonsteroidal antiinflammatory. The patient is already on Apixaban 5mg twice a day. Amiodarone has moreno restarted. Cardizem dose likely is going to be 12.5mg twice a day along with Losartan 100mg daily. We will evaluate the need for Lanoxin and daily Diuretic therapy. The patient is noted to have hyperglycemia. Discussed with the hospitalist service, will order A1c. The patient is strongly advised to followup with primary care and all the consultants, he is agreeable. Thanks for referral. The case was discussed with hospitalist, Dr. Palma. CONDITION: Stable MTDD
[2022-06-12 12:26] LABS: CHOLESTEROL 97.1 mg/dL (0-200); HDL CHOLESTEROL 29.6 mg/dL (35-60); TRIGLYCERIDES 75.3 mg/dL (0-150)
--- NOTE | 2022-06-12 13:00 | ECHO2D ---
Date of Exam: 06/12/2022 Ordering Physician: DR. MÓNICA CLAUDIO Room #: 111 Reason for Echo: A-FIB WITH RVR M-Mode Normal Adult Results LV Dimensions Normal Adult Results AoV Opening excursions >1.6 >1.6 LVEDD-base- 3.5-5.8 5.0 Ao root dimensions 2.0-3.7 3.4 LVESD-base- 3.1-4.6 L. Atrium dimensions 1.9-3.8 5.9 Post. Wall thickness 0.8-1.1 1.5 IV septum (thickness) 0.7-1.2 1.7 Post. Wall excursion 0.72-1.3 Septal motion 0.8 Systolic motion R. Ventricular cavity 1.5-2.0 NORMAL LVEF 60% 57% Paradoxical septal wall motion NORMAL 2-D : ENLARGED LEFT ATRIAL CAVITY--STIFF HYPOKINETIC SEPTUM- NORMAL VALVES, NO EFFUSION, NO THROMBUS, NORMAL LEFT VENTRICLE SIZE. COLOR FLOW: MODERATE TO SEVERE TRICUSPID REGURGITATION AND MITRAL REGURGITATION M-MODE: MV: NORMAL AV: NORMAL TV: NORMAL PV: CHAMBER SIZE: ENLARGED LEFT ATRIAL CAVITY WALL MOTION: STIFF, HYPERTROPHIC SEPTUM PERICARDIUM: NORMAL INTERPRETATION: 1. MODERATE LEFT VENTRICLE HYPERTROPHY WITH MARKEDLY ENLARGED LEFT ATRIAL CAVITY 2. STIFF HYPERTROPHIC SEPTAL WALL--EJECTION FRACTION 57% 3. NORMAL LEFT VENTRICLE SIZE 4. MODERATE TO SEVERE TRICUSPID REGURGITATION AND MITRAL REGURGITATION BY COLOR FLOW MTDD
--- NOTE | 2022-06-12 14:05 | PCM.DC ---
Final Diagnosis: atrial fibrillation, hypertension, chf, cocaine abuse Physical Exam Appearance: Well-appearing Ill-appearing: None Pain Distress: None Eyes: Conjunctiva clear ENT: Oropharynx normal Neck: Supple Respiratory: Airway patent, Breath sounds clear and Breath sounds equal Cardiovascular: Irregular rhythm and Tachycardia GI/: Soft and Nontender Musculoskeletal: Other (sen and pulses intact) Skin: Warm and Dry Neurological: Alert and Oriented Psychiatric: Affect appropriate (1) Cocaine abuse: Status: Acute Code(s): F14.10 - Cocaine abuse, uncomplicated SNOMED Code(s): 69855811 (2) CHF exacerbation: Status: Acute Code(s): I50.9 - Heart failure, unspecified SNOMED Code(s): 735166154 Qualifiers: Heart failure type: unspecified Qualified Code(s): I50.9 - Heart failure, unspecified (3) Essential hypertension: Status: Acute Code(s): I10 - Essential (primary) hypertension SNOMED Code(s): 94205488 (4) Atrial fibrillation: Status: Acute Code(s): I48.91 - Unspecified atrial fibrillation SNOMED Code(s): 30899614 Qualifiers: Atrial fibrillation type: unspecified chronic Qualified Code(s): I48.20 - Chronic atrial fibrillation, unspecified Reason for Hospitalization: shortness of breath Prognosis/Condition at Discharge: pt leaves ama before all testing and treatment completed Medications at Discharge: Ambulatory Orders Medication Instructions Recorded amiodarone 200 mg tablet 200 mg PO DAILY #90 tabs 06/10/22 digoxin 125 mcg (0.125 mg) tablet 125 mcg PO DAILY #90 tabs 06/10/22 apixaban 5 mg tablet (Eliquis) 5 mg PO BID #60 tabs 06/12/22 aspirin 81 mg tablet,delayed 81 mg PO DAILY 06/12/22 release azithromycin 250 mg tablet 250 mg PO DAILY 4 days #4 tabs 06/12/22 carvedilol 25 mg tablet (Coreg) 25 mg PO BID #60 tabs 06/12/22 diltiazem HCl 60 mg tablet 60 mg PO BID #60 tabs 06/12/22 (Cardizem) furosemide 20 mg tablet (Lasix) 20 mg PO DAILY #30 tabs 06/12/22 losartan 100 mg tablet 100 mg PO DAILY #30 tabs 06/12/22 rosuvastatin 20 mg tablet 20 mg PO DAILY 06/12/22 Lab/Diagnostics: bnp 4560, +cocaine, elevated lactate, cxr possible infiltrate Education Provided to Patient and Family: see your doctor immediately, return at any time Follow-ups: 40 minutes spent on pt discharge Discharge Disposition: AMA Hospital Course: pt improved but not fully recovered, the expectation due to his noncompliance and incomplete medical card verification, that the pt will require hospitalization in the near future Plan: ama with scripts for zpak, losartan, coreg, eliquis, cardidamiánm
[2022-06-12 15:25] VITALS: BP 118/70
[2022-06-13] MEDS ORDERED: LEVAQUIN 500 MG/100 ML D5W 500 MG/100 ML BAG IV SCH (09:00)
--- NOTE | 2022-06-16 11:02 | CONS ---
DATE OF SERVICE: 06/12/22 CONSULT FOLLOWUP SUBJECTIVE: The patient was seen and examined with the Nurse Practitioner. The patient's condition is stable. REVIEW OF SYSTEMS: CONSTITUTIONAL: No night sweats. No fatigue, malaise, lethargy. No fever or chills. HEENT: Eyes: No visual changes. No eye pain. No eye discharge. ENT: No runny nose. No epistaxis. No sinus pain. No sore throat. No odynophagia. No ear pain. No congestion. RESPIRATORY: No cough, no congestion. No hemoptysis. CARDIOVASCULAR: No angina symptoms. No CHF symptoms. No atypical chest pain for CAD. No palpitations. No shortness of breath. GASTROINTESTINAL: No abdominal pain. No nausea or vomiting. No diarrhea or constipation. No hematemesis. No hematochezia. GENITOURINARY: No urgency. No frequency. No dysuria. No hematuria. No obstructive symptoms. No discharge. No pain. No significant abnormal bleeding. MUSCULOSKELETAL: No musculoskeletal pain. No joint swelling. No arthritis. NEUROLOGICAL: No headache. No neck pain. No syncope. No seizures. No dizziness. PSYCHIATRIC: Not anxious. No depression. No suicidal thoughts. No homicidal thoughts. SKIN: No rash. No lesions. No wounds. ENDOCRINE: No unexplained weight loss. No weight gain. HEMATOLOGIC/LYMPHATIC: No anemia. No purpura. No petechiae. No prolonged or excessive bleeding. No palpable lymph nodes. PHYSICAL EXAMINATION: VITAL SIGNS: Temperature 97.2, pulse 100, respiratory rate 20, blood pressure 142/78 and pulse ox 100% on room air. HEENT: Head normocephalic, atraumatic. Eyes: Extraocular muscles are intact. Pupils are equal, round and reactive to light and accommodation. Ears: No lesions. Nose appeared normal. Throat: No exudate or erythema. NECK: Supple. No JVD, no carotid bruit. No lymphadenopathy or thyromegaly. LUNGS: Decreased breath sounds but clear to auscultation. Percussion note normal. Chest symmetrical. HEART: S1, S2, no S3. Questionable 1/6 systolic murmur going to the axilla. No cyanosis or clubbing. No ascites. Pulses: Dorsalis pedis and posterior tibial pulses +1 to +2 bilaterally. ABDOMEN: Soft. Nontender. Bowel sounds active. No CVA tenderness. No mass felt. EXTREMITIES: No edema. Full range of motion of all extremities, equal. NEUROLOGIC: No focal deficit. Cranial nerves II through XII are grossly intact. No headache, no double vision or headache. SKIN: Not dry. Intact. Turgor - normal. LYMPHATIC: No palpable lymph nodes/no lymphedema. MUSCULOSKELETAL: Normal joints with no swelling. Muscle tone is normal. LABS: Hgb 11.8, hct 36, WBC 5,400 normal differential, creatinine 1.6, BUN 24. BNP which was 4,560 on admission is down to 2,090, Troponin negative. T4 TSH pending. A1c and Lipids have been ordered ASSESSMENT: 1. Atrial fibrillation with acceptable ventricular response. The patient is on Cardizem 60mg twice a day and Coreg 12.5mg PO twice a day along with the rest of the medications. The patient is on Amiodarone and has been held for now. 2. The patient has hypertrophic cardiomyopathy with markedly enlarged left atrial cavity with severe tricuspid and mitral regurgitation. The patient is going to be very difficult to convert to sinus rhythm. he is strongly advised to take Eliquis. Side effects of Eliquis discussed in detail with intracranial bleed and GI bleed. Advised not to take any nonsteroidal antiinflammatory. 3. The patient has chronic kidney disease along with possibility of diabetes mellitus. RECOMMENDATIONS: 1. Strongly advised to followup with the primary care. The patient is noncompliant. Case discussed with attending. ABEL
--- NOTE | 2022-06-16 11:02 | PN ---
CONSULT: 06/11/22: Level 5 Followup 06/12/22: Extensive MTDD
== END 2022-06-12 14:50 | disposition left against medical advice (07) | DRG 894 ==
LOC: ED 09:57 → MEDSURG A 20:05
PROVIDERS: ADMIT Internal Medicine Geriatric Medicine; ATTEND Surgery
DX: Z79.01 Long term (current) use of anticoagulants; I48.91 Unspecified atrial fibrillation; Z20.822 Contact with and (suspected) exposure to COVID-19; Z51.81 Encounter for therapeutic drug level monitoring; Z79.899 Other long term (current) drug therapy; I10 Essential (primary) hypertension; R06.02 Shortness of breath; I50.9 Heart failure, unspecified; N18.9 Chronic kidney disease, unspecified; F14.10 Cocaine abuse, uncomplicated